=== PATIENT | female | born 1960 | race Caucasian/White ===

== ENCOUNTER → 2023-01-29 23:29 | Outpatient (CLI) | payer MEDICARE, SELFPAY ==
[2023-01-29 18:42] LABS: Basophils # 0.1 K/mm3 (0-0.2); Basophils % 0.8 % (0.1-2.0); Eosinophils # 0.1 K/mm3 (0.0-0.4); Eosinophils % 0.7 % (0.1-12.0); Hematocrit 41.8 % (37.0-47.0); Hemoglobin 13.4 g/dL (12.2-16.2); Lymphocytes # 2.3 K/mm3 (0.7-4.5); Lymphocytes % 30.6 % (10-50); Mean Corpuscular Hemoglobin 29.3 pg (27.0-31.2); Mean Corpuscular Volume 91.5 fl (81-99); Mean Platelet Volume 8.7 fl (7.4-10.4); Monocytes # 0.3 K/mm3 (0.1-1.0); Monocytes % 3.6 % (1.7-9.3); Neutrophils # 4.7 K/mm3 (1.8-7.8); Neutrophils % 64.2 % (37.0-80.0); Platelet Count 456 K/mm3 (142-424); Red Blood Count 4.57 M/mm3 (4.20-5.40); Red Cell Distribution Width 14.8 % (11.5-17.5); White Blood Count 7.4 K/mm3 (4.8-10.8)
[2023-01-29 19:05] LABS: Alanine Aminotransferase 23 U/L (12-78); Alkaline Phosphatase 107 U/L (38-126); Aspartate Amino Transferase 31 U/L (14-36); Bilirubin,Total 0.3 mg/dl (0.2-1.3); Blood Urea Nitrogen 16 mg/dl (7-17); Carbon Dioxide 29 mmol/L (22.0-30.0); Chloride 105 mmol/L (98-107); Chol/HDL Ratio 2.9 (1-3.5); Cholesterol 143 mg/dl (140-200); Estimated Glomerular Filt Rate 73 ml/min (>60); GFR (African American) 89 ML/MIN (>60); Glucose 101 mg/dl (74-100); HDL Cholesterol 50 mg/dl (40-60); Triglycerides 91 mg/dl (30-150); VLDL Cholesterol 18 mg/dL (0-40)
[2023-01-29 19:07] LABS: Albumin/Globulin Ratio 1.6 (1.1-1.8); Globulin 2.5 g/dL (1.3-3.2); Sodium 138 mmol/L (136-145); Total Protein,Serum 6.5 g/dl (6.3-8.2)
[2023-01-29 19:16] LABS: Direct LDL Cholesterol 81.34 mg/dL (100-129)
[2023-01-29 19:36] LABS: Thyroid Stimulating Hormone 1.72 uIU/mL (0.465-4.68)
== END ==
LOC: LAB.DROPOF 23:30
PROVIDERS: PCP Family Medicine; Visit Provider Family Medicine
DX: E78.5 Hyperlipidemia, unspecified (principal); Z79.899 Other long term (current) drug therapy
CPT/HCPCS: 80053; 80061; 84443; 85025

== ENCOUNTER 2023-04-20 08:28 | Outpatient (CLI) | payer MEDICARE, SELFPAY ==
--- NOTE | 2023-04-20 08:29 | MM_ITS ---
PROCEDURE INFORMATION: Exam: Bilateral Screening 3D Mammography Exam date and time: 04/20/2023 8:17 AM Age: 62 years old Clinical indication: Screening. No family history of breast cancer. TECHNIQUE: Imaging protocol: Bilateral Screening tomosynthesis and 2D mammography including computer-aided detection (CAD) when performed. COMPARISON: No relevant prior studies available.If prior mammograms are provided, I am happy to add an addendum. FINDINGS: MAMMOGRAPHY: Breast composition: The breasts are heterogeneously dense, which may obscure small masses. Mass: Oval 0.9 cm mass in the left upper outer quadrant posterior 3rd. Architectural distortion: None. Calcifications: No suspicious calcifications. Asymmetric density: Questionable lobulated 1.5 cm asymmetry in the left inner breast posterior 3rd, craniocaudad view only. Skin thickening: None. Axillary adenopathy: None. IMPRESSION: Comparison to prior mammograms will be most helpful. These are not provided within 30 days, patient will be recalled for left diagnostic mammography with spot compression at the asymmetry in the craniocaudad view and full field lateral as well as bilateral sonography for further evaluation of left breast mass and questionable left breast asymmetry. ASSESSMENT: BI-RADS Category 0: Need prior mammograms for comparison.
== END 2023-04-20 23:59 ==
LOC: RAD 08:29
PROVIDERS: PCP Family Medicine; Visit Provider Obstetrics & Gynecology
DX: Z12.31 Encounter for screening mammogram for malignant neoplasm of breast (principal)
CPT/HCPCS: 77063; 77067

== ENCOUNTER 2023-06-07 14:33 | Outpatient (CLI) | payer MEDICARE, SELFPAY ==
--- NOTE | 2023-06-07 14:37 | CT_ITS ---
FINAL REPORT TECHNIQUE: Axial images were obtained from the lung apex to the mid abdomen by computed tomography. This study was performed with techniques to keep radiation doses as low as reasonably achievable (ALARA). Individualized dose reduction techniques using automated exposure control or adjustment of mA and/or kV according to the patient's size were employed. CLINICAL HISTORY: lung cancer screening. Smoker- 1 PPD x 45 yrs. Exposed to second hand smoke. FINDINGS: CHEST CT LOW DOSE CTDI vol (mGy): 2.90 DLP (mGy-cm): 97.42 There is no axillary adenopathy. There is no hilar or mediastinal adenopathy. There is a nodule in the posterolateral left breast measuring 8 mm well seen on image 27 of series 3. The heart is normal in size. There is no pericardial or pleural effusion. Lung window images demonstrate no suspicious infiltrate or nodule. Limited images of the upper abdomen are unremarkable. IMPRESSION: Left breast nodule. Recommend physical exam and mammography. Lung RADS category 1S. Recommend 12 month follow-up low-dose chest CT. Reviewed, Interpreted and Dictated by Francisco Barker MD Transcribed by Skyla Boston Authenticated and [facility]
== END 2023-06-07 23:59 | disposition home or self-care (01) ==
LOC: RAD 14:33
PROVIDERS: PCP Family Medicine; Visit Provider Family Medicine
DX: F17.210 Nicotine dependence, cigarettes, uncomplicated (principal); Z12.2 Encounter for screening for malignant neoplasm of respiratory organs
CPT/HCPCS: 71271

== ENCOUNTER 2023-07-26 08:50 | Day surgery (SDC) | payer MEDICARE, SELFPAY ==
[2023-07-21 13:21] VITALS: BMI 19.5
[2023-07-26] VITALS (8 sets, daily range): BP systolic 98–124; BP diastolic 47–77; PULSE 56–74; RESP 14–18; TEMP 36.1–36.2; O2SAT 94–97; BMI 19.5
[2023-07-26 09:25] LABS: Chloride 106 mmol/L (98-107); Potassium 4.1 mmoL/L (3.5-5.1); Sodium 138 mmol/L (136-145)
[2023-07-26 09:28] LABS: Anion Gap 10.1 mEq/L (5-15); Blood Urea Nitrogen 24 mg/dl (7-17); Calcium 9.2 mg/dl (8.4-10.2); Carbon Dioxide 26 mmol/L (22.0-30.0); Creatinine Clearance Estimated 47 mL/min (50-200); Estimated Glomerular Filt Rate 64 ml/min (>60); GFR (African American) 77 ML/MIN (>60); Glucose 108 mg/dl (74-100)
[2023-07-26 09:30] LABS: Basophils # 0.1 K/mm3 (0-0.2); Basophils % 0.7 % (0.1-2.0); Eosinophils # 0.1 K/mm3 (0.0-0.4); Eosinophils % 1.6 % (0.1-12.0); Hematocrit 39.8 % (37.0-47.0); Hemoglobin 13.1 g/dL (12.2-16.2); Lymphocytes # 2.5 K/mm3 (0.7-4.5); Lymphocytes % 28.1 % (10-50); Mean Corpuscular Hemoglobin 29.9 pg (27.0-31.2); Mean Corpuscular Volume 90.6 fl (81-99); Mean Platelet Volume 7.6 fl (7.4-10.4); Monocytes # 0.4 K/mm3 (0.1-1.0); Monocytes % 4.8 % (1.7-9.3); Neutrophils # 5.7 K/mm3 (1.8-7.8); Neutrophils % 64.8 % (37.0-80.0); Platelet Count 406 K/mm3 (142-424); Red Blood Count 4.39 M/mm3 (4.20-5.40); White Blood Count 8.7 K/mm3 (4.8-10.8)
[2023-07-26] MEDS: CEFAZOLIN SODIUM 1 GM in 0.9 % SODIUM CHLORIDE 50 ML IV (09:30)
[2023-07-26] MEDS: ROPIVACAINE 0.5% 30ML VIAL 150 MG (09:36)
[2023-07-26] MEDS: LIDOCAINE 1% 10ML MDV 10 ML (09:36)
--- NOTE | 2023-07-26 09:52 | EXP.OP.NOTE ---
Date of procedure: 07/26/23 Pre-op Diagnosis:: Skin cancer left lower extremity Post-op Diagnosis:: Same Procedure performed:: Excision of skin cancer left lower extremity (excisional circumference 2.5 cm) without closure Surgeon:: Arturo Tobar MD MACHINE ASSEMBLER SUPERVISOR:: Niko Jade Anesthesia: LMA Estimated blood loss (mL): 3 Clinical Note:: Patient presents to the office for excision of left pretibial skin cancer. She is a 63-year-old female from [facility] referred by Dr. Orellana for skin cancer on the left pretibial region. She states that this area has been present for quite some time. Potentially years. She recently had a punch biopsy in his office on 06/06/2022. This reveals findings of invasive basal cell carcinoma. I spent a good deal of time with the patient discussing the options. This is somewhat of a challenging location to deal with surgically for primary closure given the lack of tissue. I recommend excision with grossly negative margins. Likely would plan to leave the area open for possible healing by secondary intention. That way if the pathology returns needing reexcision this can be done. If it shows lack of healing may consider limited skin graft at a later date. Operative findings:: Skin cancer, Operative note:: Consent was obtained and patient was taken to the operating room. She was given preoperative intravenous antibiotics. In the operating room she was placed in a supine position. Anesthesia was induced via LMA. Area was prepped and draped in the standard surgical fashion. Lesion was marked with a skin marker for planned negative margins circumferentially of about 4 to 5 mm. Consideration was being given for possible primary closure but this would result in about a 7 cm incision. Therefore plan was made as before for excision with margins and allowing the area to hopefully granulate. Full-thickness skin incision was made circumferentially at the site of the markings. The overlying skin was then dissected free from the underlying subcutaneous tissues using electrocautery. Prior to completely removing this it was marked with a short suture superiorly and a long suture laterally for margins. It was then excised from the underlying subcutaneous tissues. Was sent off as a specimen. Hemostasis was assured. Wound measured approximately 25 mm. Therefore plan was made for leaving the wound open and initiation of dressing changes and possible skin graft in the future if necessary. Wound was packed with a moistened saline gauze and covered with clean dry sterile dressing. Condition: stable Disposition: PACU Complications:: None immediate
--- NOTE | 2023-07-26 09:56 | P.PNANES_ITS ---
[facility] Disclaimer: The information contained in this section may have been updated after the patient was seen, as this information can be updated by other users. Medical History Family history of early CAD Family history of stroke Family history of MS (myocardial infarction) Left wrist fracture PID (pelvic inflammatory disease) Alcoholism Hypertension IBS (irritable bowel syndrome) Depression Anxiety Surgical History H/O unilateral salpingectomy S/P removal of left ovary History of surgery on right wrist Hx of section Family History Other Alzheimers disease Coronary artery disease Heart attack Stroke Social History (Updated 07/26/23 @ 09:16 by Hannah Olivera RN) Smoking Status: Current every day smoker tobacco type: cigarettes packs per day: 1 alcohol intake: former substance use type: denies use current occupational status: disabled Travel in the last 8 weeks: None [facility] Anesthesia Checklist Patient Identification Patient Identification: Arm Band and Family Structural Data Admitted From: Home Planned Operative Procedure/s: excision lesion Left Lower Leg Consent for Planned Operative Procedure(s) Verified: Yes Verified Documents: Surgical Consent and History and Physical NPO Status Verified Time NPO: 00:00 Additional verifications Patient : No Anesthesia Reactions: No Hx Blood Transfusions: No Blood Transfusion Reaction: No Cephalosporin Allergy: No Previous Colonoscopy: Yes Airway Assessment Mallampati Score:: Class II C-Spine Mobility Assessed: Yes TMJ Mobility Assessed: Yes Dentition: Good Dentition Neurological Assessment Level of Consciousness: Awake, Alert, Appropriate and Follows Commands Hx Seizures: No Numbness or tingling in extremities: No Anesthesia Plan Anesthesia Risk discussed: Yes ASA Class: II Anesthesia Type: General Preoperative Comments Pre-Operative Comments: smoker. IBS.\
--- NOTE | 2023-07-26 09:58 | P.PNANES_ITS ---
[facility] Anesthesia Record Part I Anesthesia Record I Intake, IV Amount: 400 Hydration: Adequate Estimated blood loss (mL): 1 Urine output (mL): 0 Blood Products used (#): none Blood Pressure: 121/77 SaO2: 94 Pulse Rate: 56 Airway Patency: Patent Respiratory Rate: 14 Temperature: 97.0 F Patient is:: Drowsy and Stable Stable to PACU at:: 09:50
--- NOTE | 2023-07-27 08:11 | P.PNANES_ITS ---
[facility] Anesthesia Record Part II Anesthesia Record Part II Discharge Time: 10:20 Destination: Surgical Day Care (OP Surgery) PACU nurse assessment reviewed?: Yes Patient Condition:: Good Anesthesia Complications:: None Swallowing reflex intact?: Yes Airway Patency: Patent Cyanosis?: No Blood Pressure: 124/74 SaO2: 95 Respiratory Rate: 16 Pulse Rate: 74 Temperature: 97.1 F Mental Status: Alert & Oriented Pain level:: 0 Nausea and/or vomitting:: None Intake, IV Amount: 0 Hydration: Adequate
[2023-07-27 08:12] VITALS: BP 124/74; PULSE 74; RESP 16; TEMP 36.2; O2SAT 95
== END 2023-07-26 10:51 | disposition home or self-care (01) ==
PROVIDERS: PCP Family Medicine; Visit Provider Surgery
PROC: (CPT 11603; principal; 2023-07-26 10:00)
DX: C44.719 Basal cell carcinoma of skin of left lower limb, including hip (principal)
CPT/HCPCS: 11603; 80048; 85025; 88305; 96374; J0690; J1100; J2405; J3010

== ENCOUNTER 2023-07-27 14:48 | Outpatient (CLI) | payer MEDICARE, SELFPAY ==
--- NOTE | 2023-07-27 15:00 | PC.NURSE ---
1500-instructed friend on dressing change technique to be done at home.
== END 2023-07-27 15:05 | disposition home or self-care (01) ==
LOC: INF 14:49
PROVIDERS: PCP Family Medicine; Visit Provider Surgery
DX: Z48.01 Encounter for change or removal of surgical wound dressing (principal)
CPT/HCPCS: G0463

== ENCOUNTER 2023-08-05 11:11 | Outpatient (CLI) | payer MEDICARE, SELFPAY ==
[2023-08-05] MEDS: KETOROLAC 30MG/ML VIAL 30 MG (11:20)
[2023-08-05 11:35] VITALS: BP 113/67; PULSE 51; RESP 18; O2SAT 98
== END 2023-08-05 11:35 | disposition home or self-care (01) ==
LOC: INF 11:12
PROVIDERS: PCP Family Medicine; Visit Provider Surgery
DX: C44.719 Basal cell carcinoma of skin of left lower limb, including hip (principal); Z98.890 Other specified postprocedural states
CPT/HCPCS: 96372; J1885

== ENCOUNTER 2024-03-03 09:31 | Outpatient (CLI) | payer MEDICARE, SELFPAY ==
[2024-03-03 18:32] LABS: Basophils % 0.5 % (0.1-2.0); Eosinophils # 0.1 K/mm3 (0.0-0.4); Eosinophils % 1.8 % (0.1-12.0); Hemoglobin 12.9 g/dL (12.2-16.2); Lymphocytes # 2.1 K/mm3 (0.7-4.5); Lymphocytes % 34.2 % (10-50); Mean Corpuscular HGB Conc 31.5 g/dL (31.8-35.4); Mean Corpuscular Hemoglobin 28.6 pg (27.0-31.2); Mean Corpuscular Volume 90.9 fl (81-99); Mean Platelet Volume 8.8 fl (7.4-10.4); Monocytes # 0.4 K/mm3 (0.1-1.0); Monocytes % 5.6 % (1.7-9.3); Neutrophils # 3.6 K/mm3 (1.8-7.8); Neutrophils % 57.7 % (37.0-80.0); Platelet Count 382 K/mm3 (142-424); Red Blood Count 4.51 M/mm3 (4.20-5.40); Red Cell Distribution Width 13.6 % (11.5-17.5); White Blood Count 6.3 K/mm3 (4.8-10.8)
[2024-03-03 19:15] LABS: Alanine Aminotransferase 32 U/L (12-78); Alkaline Phosphatase 100 U/L (38-126); Anion Gap 10.4 mEq/L (5-15); Aspartate Amino Transferase 34 U/L (14-36); Blood Urea Nitrogen 19 mg/dl (7-17); Calcium 9.9 mg/dl (8.4-10.2); Carbon Dioxide 29 mmol/L (22.0-30.0); Chloride 102 mmol/L (98-107); Chol/HDL Ratio 3.5 (1-3.5); Cholesterol 111 mg/dl (140-200); Estimated Glomerular Filt Rate 73 ml/min (>60); GFR (African American) 88 ML/MIN (>60); Glucose 94 mg/dl (74-100); HDL Cholesterol 32 mg/dl (40-60); Potassium 4.4 mmoL/L (3.5-5.1); Sodium 137 mmol/L (136-145); Triglycerides 104 mg/dl (30-150); VLDL Cholesterol 21 mg/dL (0-40)
[2024-03-03 19:20] LABS: Bilirubin,Total < 0.1 mg/dl (0.2-1.3)
[2024-03-03 19:26] LABS: Direct LDL Cholesterol 62.57 mg/dL (100-129)
[2024-03-03 19:45] LABS: Thyroid Stimulating Hormone 1.37 uIU/mL (0.465-4.68)
[2024-03-03 20:07] LABS: HIV Combo NEGATIVE (Negative)
[2024-03-03 20:12] LABS: Hepatitis C Ab Qual. W/ RFX NEGATIVE (Negative)
== END 2024-03-03 23:59 | disposition home or self-care (01) ==
LOC: LAB.DROPOF 03-06 09:33
PROVIDERS: PCP Family Medicine; Visit Provider Family Medicine
DX: E78.5 Hyperlipidemia, unspecified (principal)
CPT/HCPCS: 80053; 80061; 84443; 85025; 86803; 87389

== ENCOUNTER 2024-03-21 08:12 | Outpatient (CLI) | payer MEDICARE, SELFPAY ==
--- NOTE | 2024-03-21 08:13 | CT_ITS ---
FINAL REPORT TECHNIQUE: Thin section axial images were obtained from the lung apices to the upper abdomen by computed tomography. Reformatted images were obtained and reviewed. This study was performed with techniques to keep radiation doses al low as reasonably achievable (ALARA). Individualized dose reduction techniques using automated exposure control or adjustment of mA and/or kV according to the patient's size were employed. CLINICAL HISTORY: lung cancer screening current smoker , 1 ppd x 30 years COMPARISON: 06/07/2023 FINDINGS: CHEST CT LOW DOSE 63-year-old female, current smoker, 04-tymf-sbut history. CTDI vol (mGy): 2.9 DLP (mGy-cm): 96.38 There is no axillary adenopathy. There is no mediastinal or hilar mass or adenopathy. The heart is normal in size. There is no pericardial or pleural effusion. Lung window images demonstrate a small 3 mm nodule in the left upper lobe best seen on image #32 of series 4, stable when compared to the prior exam. The previously seen nodule in the left breast is less conspicuous on today's exam, best seen on image #135 of series 2 and measuring 7 mm in size. Limited images of the upper abdomen are unremarkable. IMPRESSION: Lung-RADS category 2. Recommend 12 month follow up low dose chest CT. Reviewed, Interpreted and Dictated by Francisco Barker MD Transcribed by Kelly He Authenticated and [facility]
== END 2024-03-21 23:59 | disposition home or self-care (01) ==
LOC: RAD 08:13
PROVIDERS: PCP Family Medicine; Visit Provider Family Medicine
DX: F17.210 Nicotine dependence, cigarettes, uncomplicated (principal); Z12.2 Encounter for screening for malignant neoplasm of respiratory organs
CPT/HCPCS: 71271

== ENCOUNTER 2024-06-12 10:31 | Day surgery (SDC) | payer MEDICARE, SELFPAY ==
[2024-06-09 09:00] VITALS: BMI 16.8
[2024-06-12 11:55] VITALS: BP 99/61; PULSE 60; RESP 16; TEMP 36.4; O2SAT 98
[2024-06-12] MEDS: LACTATED RINGERS 1000ML 1,000 ML 50 ML IV (12:04)
--- NOTE | 2024-06-12 12:19 | P.PNANES_ITS ---
[facility] Disclaimer: The information contained in this section may have been updated after the patient was seen, as this information can be updated by other users. Medical History Family history of early CAD Family history of stroke Family history of KS (myocardial infarction) Left wrist fracture PID (pelvic inflammatory disease) Alcoholism Hypertension IBS (irritable bowel syndrome) Depression Anxiety Surgical History H/O unilateral salpingectomy S/P removal of left ovary History of surgery on right wrist Hx of section Family History Other Alzheimers disease Coronary artery disease Heart attack Stroke Social History (Updated 06/12/24 @ 12:03 by Stephani Blackwell RN) Smoking Status: Current every day smoker tobacco type: cigarettes packs per day: 1 alcohol intake: never substance use type: denies use current occupational status: disabled Travel in the last 8 weeks: None caffeine: Yes Have you lived/traveled outside [place] in past 30 days?: No Contact w/someone who lives/traveled outside US past 30 days?: No Exposure to someone with infectious disease in past 14 days?: No Do you have a fever (greater than 100.4 F or 38 C)?: No Have you tested positive for COVID-19: No Exposed to someone with COVID-19 in past 14 days?: No Do you have a sore throat?: No Do you have a cough?: No Do you have any weakness?: No Are you experiencing any nausea/vomitting?: No Do you have any diarrhea?: No Are you experiencing any unusual bleeding?: No Do you have any muscle aches/pain?: No Do you have any abdominal pain?: No Are you experiencing loss of taste or smell?: No [facility] Anesthesia Checklist Patient Identification Patient Identification: Arm Band and Verbal (Name & ) Structural Data Admitted From: Home Planned Operative Procedure/s: EGD/colonoscopy Consent for Planned Operative Procedure(s) Verified: Yes Verified Documents: Surgical Consent NPO Status Verified Time NPO: 00:00 Chart Verification Results Verified: None Additional verifications Anesthesia Reactions: No Hx Blood Transfusions: No Blood Transfusion Reaction: No Airway Assessment Mallampati Score:: Class II C-Spine Mobility Assessed: Yes Dentition: Edentulous Neurological Assessment Level of Consciousness: Awake, Alert and Appropriate Hx Seizures: No Numbness or tingling in extremities: No Anesthesia Plan Anesthesia Risk discussed: Yes Anesthesia Plan: Verified ASA Class: II Anesthesia Type: MAC
--- NOTE | 2024-06-12 13:13 | EXP.HP ---
History of Present Illness *Admission Date: 06/12/24 *History of present illness: Mrs. Boss is a 63-year-old female with longstanding IBS with diarrhea. The patient was having bowel control difficulties and had InterStim placed several years ago but this is not functioning. The patient does describe chronic intermittent diarrhea with no regular bowel movements or constipation. She can have no bowel movements or up to 4 bowel movements daily with urgency and frequency. She does have some incomplete defecation. The patient's chief complaint however is her abnormal weight loss with significant early satiety, nausea and postprandial vomiting that occurs 30 minutes after meals. She is not eating much. She has lost nearly 20 pounds in the last few months (since November 2023). In November 2023 she had dental extraction and has not had dentures made just yet. She is having a very difficult time maintaining her weight. She went from 115 pounds down to 95 pounds. She is lost nearly 60 pounds in the last 6 years. She has had no recent abdominal imaging. She does report moderate bloating with little gassiness. She has marked early satiety and pain in the upper and lower abdomen. She has not had cholecystectomy. She does have a history of anxiety and depression and is on Trintellix. She has had no recent colonoscopy and her last colonoscopy was 5 years ago (? In [place]). The patient also reports more frequent bouts of significant lightheadedness and has had 3 or 4 bouts of syncope recently. She has not seen her PCP or gone to the emergency department. [facility] Disclaimer: The information contained in this section may have been updated after the patient was seen, as this information can be updated by other users. Medical History Family history of early CAD Family history of stroke Family history of MD (myocardial infarction) Left wrist fracture PID (pelvic inflammatory disease) Alcoholism Hypertension IBS (irritable bowel syndrome) Depression Anxiety Surgical History H/O unilateral salpingectomy S/P removal of left ovary History of surgery on right wrist Hx of section Family History Other Alzheimers disease Coronary artery disease Heart attack Stroke Social History (Updated 06/12/24 @ 12:03 by Stephani Blackwell RN) Smoking Status: Current every day smoker tobacco type: cigarettes packs per day: 1 alcohol intake: never substance use type: denies use current occupational status: disabled Travel in the last 8 weeks: None caffeine: Yes Have you lived/traveled outside US in past 30 days?: No Contact w/someone who lives/traveled outside US past 30 days?: No Exposure to someone with infectious disease in past 14 days?: No Do you have a fever (greater than 100.4 F or 38 C)?: No Have you tested positive for COVID-19: No Exposed to someone with COVID-19 in past 14 days?: No Do you have a sore throat?: No Do you have a cough?: No Do you have any weakness?: No Are you experiencing any nausea/vomitting?: No Do you have any diarrhea?: No Are you experiencing any unusual bleeding?: No Do you have any muscle aches/pain?: No Do you have any abdominal pain?: No Are you experiencing loss of taste or smell?: No Review of Systems Review of Systems Review of systems (narrative): Negative *Cardiovascular Comments: Negative *Gastrointestinal Comments: Negative *Genitourinary Comments: Negative *Musculoskeletal Comments: Negative *Neurologic Comments: Negative Meds Home Medications and Allergies Home Medications ?Medication ?Instructions ?Recorded ?Confirmed ?Type eszopiclone 3 mg tablet (Lunesta) 3 mg PO DAILY 03/24/23 06/12/24 History vortioxetine 20 mg tablet 20 mg PO DAILY 03/24/23 06/12/24 History (Trintellix) atorvastatin 80 mg tablet 80 mg PO DAILY #90 tabs 05/14/23 06/12/24 Rx hydroxyzine HCl 50 mg tablet 100 mg (2 x 50 mg) PO HS #180 tabs 05/14/23 06/12/24 Rx gabapentin 100 mg capsule 100 mg PO DAILY #30 caps 03/03/24 06/12/24 Rx ropinirole 3 mg tablet 3 mg PO DAILY #90 tabs 04/20/24 06/12/24 Rx lorazepam 1 mg tablet 4 mg PO DAILY PRN Anxiety 05/30/24 06/12/24 History sodium,potassium,mag sulfates 17.5 See Rx Instructions PO .COMPLEX 05/30/24 06/12/24 Rx gram-3.13 gram-1.6 gram oral soln #354 mL (Suprep Bowel Prep Kit) trazodone 150 mg tablet 150 mg PO HS 06/09/24 06/12/24 History New Prescriptions to Start Prescriptions: Allergies Allergy/AdvReac Type Severity Reaction Status Date / Time No Known Allergies Allergy Verified 06/12/24 11:52 Exam Data for Last 24 hours Vital signs and Labs for Last 24 Hours: Temp Pulse Resp BP Pulse Ox O2 Del Method 97.6 F 60 16 99/61 L 98 Room Air 06/12/24 11:55 06/12/24 11:55 06/12/24 11:55 06/12/24 11:55 06/12/24 11:55 06/12/24 11:55 I & O for Last 24 hours: Intake & Output 06/09/24 06/10/24 06/11/24 06/12/24 23:59 23:59 23:59 23:59 Weight 95 lb *Routine HEENT Exam Head: Present normocephalic Eye: Present EOMI and PERRL ENT: Present mucous membranes moist *Routine Neck Exam Neck: Present supple *Routine Respiratory Exam Respiratory: Present CTA bilaterally *Routine Cardiovascular Exam Cardiovascular: Present RRR *Routine Abdominal Exam Abdominal: Present soft and normoactive bowel sounds; Absent tenderness *Routine Rectal Exam Rectal:: deferred *Routine Genitalia Exam Genitalia:: deferred *Routine Extremities Exam Extremities: Absent cyanosis, clubbing or edema *Routine Skin Exam Skin: Present warm; Absent rash *Routine Neurological Exam Neurological: Present alert and oriented X3 Assessment and Plan *Assessment and plan (1) Nausea and vomiting: Status: Acute Category: Medical Code(s): R11.2 - Nausea with vomiting, unspecified (2) Chronic diarrhea: Status: Acute Category: Medical Code(s): K52.9 - Noninfective gastroenteritis and colitis, unspecified (3) Early satiety: Status: Acute Category: Medical Code(s): R68.81 - Early satiety (4) Abnormal weight loss: Status: Acute Category: Medical Code(s): R63.4 - Abnormal weight loss (5) Generalized abdominal pain: Status: Acute Category: Medical Code(s): R10.84 - Generalized abdominal pain (6) Abdominal cramps: Status: Acute Category: Medical Code(s): R10.9 - Unspecified abdominal pain Plan A/P: 1. Nausea/vomiting with early satiety and weight loss. The patient does have chronic diarrhea. This is the preprocedural diagnosis. The patient will be anesthetized/sedated using MAC sedation. The patient has been seen and examined. Cardiac and lung assessment prior to the examination is stable. Proceed with planned diagnostic EGD and colonoscopy.
[2024-06-12 13:17] VITALS: O2SAT 98
--- NOTE | 2024-06-12 13:20 | HMH.PROCNOTE ---
[facility] Procedure Note Date: 06/12/24 Time: 13:31 Procedure Note:: Upper Endoscopy Procedure Report: Esophagogastroduodenoscopy with cold biopsies and TTS balloon dilation Endoscopost: Damon Herr II, MD Referring Physician: Tino Orellana MD Date of Procedure: June 12, 2024 Equipment: Olympus GIF 190 standard upper endoscope Sedation: MAC sedation Indications: Mrs. Boss is a 63-year-old female who is here for diagnostic EGD and colonoscopy. She has had longstanding IBS with diarrhea. The patient was having bowel control difficulties and had InterStim placed several years ago but this is not functioning. The patient does describe chronic intermittent diarrhea with no regular bowel movements or constipation. She can have no bowel movements or up to 4 bowel movements daily with urgency and frequency. She does have some incomplete defecation. The patient's chief complaint however is her abnormal weight loss with significant early satiety, nausea and postprandial vomiting that occurs 30 minutes after meals. She is not eating much. She has lost nearly 20 pounds in the last few months (since November 2023). In November 2023 she had dental extraction and has not had dentures made just yet. She is having a very difficult time maintaining her weight. She went from 115 pounds down to 95 pounds. She is lost nearly 60 pounds in the last 6 years. She has had no recent abdominal imaging. She does report moderate bloating with little gassiness. She has marked early satiety and pain in the upper and lower abdomen. She has not had cholecystectomy. She does have a history of anxiety and depression and is on Trintellix. She has had no recent colonoscopy and her last colonoscopy was 5 years ago (? In [place]). The patient also reports more frequent bouts of significant lightheadedness and has had 3 or 4 bouts of syncope recently. She has not seen her PCP or gone to the emergency department. Procedure: Prior to the procedure, a history and physical exam was performed, and patient's medications and allergies were reviewed. The risks, benefits and alternatives of the sedation and procedure were discussed with the patient. All questions were answered and informed consent was obtained. The patient was brought to the procedure room. Patient identification and proposed procedure were verified by the physician and the nurse. The patient was placed in a left lateral decubitus position and the scope was passed under direct vision. Throughout the procedure, the patient's blood pressure, pulse, and oxygen saturations were monitored continuously. The upper GI endoscopy was accomplished without difficulty. The patient tolerated the procedure well. Findings: The scope was passed directly into the upper esophagus and advanced to the third portion of the duodenum. The post bulbar duodenum and duodenal bulb were normal with normal mucosa and conniventes. Cold biopsies were taken from the first portion of duodenum to rule out celiac disease. The scope was withdrawn through a normal duodenal bulb and pylorus into the stomach. There was linear reactive gastropathy of the antrum and body of the stomach with bile reflux. Biopsies were taken from the antrum. The proximal body and fundus of the stomach were normal. Upon retroflexion there was a very small sliding hiatal hernia (1 to 2 cm). The scope was then withdrawn into the esophagus. There was no evidence of reflux esophagitis or Szymanski's. There was a small insignificant distal ring. There were tertiary contractions and evidence of moderate esophageal dysmotility. The entire esophagus was dilated to 60 Urdu/20 mm with a TTS hydrostatic balloon with no resistance. The remainder of the esophageal mucosa was normal. Impression: 1. Nonerosive GERD with moderate esophageal dysmotility and very small sliding 1 to 2 cm hiatal hernia 2. Bile reflux with mild to moderate linear reactive gastropathy Plan: I will follow-up the biopsies and proceed with diagnostic colonoscopy. I will discuss the findings with the patient and family.
--- NOTE | 2024-06-12 13:33 | P.PCN_ITS ---
[facility] Procedure Note Date: 06/12/24 Time: 13:48 Procedure Note:: Colonoscopy Procedure Report: Colonoscopy with cold biopsies Endoscopist: Damon Herr II, MD Referring physician: Tino Orellana MD Date of Procedure: June 12, 2024 Equipment: Olympus 190 variable stiffness pediatric colonoscope Sedation: MAC sedation Indication: Mrs. Boss is a 63-year-old female who is here for diagnostic EGD and colonoscopy. She has had longstanding IBS with diarrhea. The patient was having bowel control difficulties and had InterStim placed several years ago but this is not functioning. The patient does describe chronic intermittent diarrhea with no regular bowel movements or constipation. She can have no bowel movements or up to 4 bowel movements daily with urgency and frequency. She does have some incomplete defecation. The patient's chief complaint however is her abnormal weight loss with significant early satiety, nausea and postprandial vomiting that occurs 30 minutes after meals. She is not eating much. She has lost nearly 20 pounds in the last few months (since November 2023). In November 2023 she had dental extraction and has not had dentures made just yet. She is having a very difficult time maintaining her weight. She went from 115 pounds down to 95 pounds. She is lost nearly 60 pounds in the last 6 years. She has had no recent abdominal imaging. She does report moderate bloating with little gassiness. She has marked early satiety and pain in the upper and lower abdomen. She has not had cholecystectomy. She does have a history of anxiety and depression and is on Trintellix. She has had no recent colonoscopy and her last colonoscopy was 5 years ago (? In [place]). The patient also reports more frequent bouts of significant lightheadedness and has had 3 or 4 bouts of syncope recently. She has not seen her PCP or gone to the emergency department. Procedure: Prior to the procedure, a history and physical exam was performed, and patient's medications and allergies were reviewed. The risks, benefits and alternatives of the sedation and procedure were discussed with the patient. All questions were answered and informed consent was obtained. The patient was brought to the procedure room. Patient identification and proposed procedure were verified by the physician and the nurse. The patient was placed in a left lateral decubitus position and the scope was passed under direct vision. Throughout the procedure, the patient's blood pressure, pulse, and oxygen saturations were monitored continuously. The colonoscopy was accomplished without difficulty. The patient tolerated the procedure well. Findings: On digital rectal examination there was normal rectal tone. There were no external hemorrhoids. The colonoscope was introduced through the anal canal to the rectum and advanced to the cecum. The ileocecal valve and appendiceal orifice were identified. The scope was advanced a short distance into the ileum which appeared grossly normal. The scope was then withdrawn into the colon. The cecum, ascending, transverse, descending, sigmoid and rectum were grossly normal. There was increased colonic luminal diameter. There were no mucosal abnormalities identified. Cold biopsies were taken randomly to rule out microsc opic colitis. Upon retroflexion within the rectum there were grade 1 internal hemorrhoids. The preparation was good throughout with [place] Preparation Score of 7?8 out of 9. The cecal time was 12 minutes. Impression: 1. Normal colonoscopy with intubation of the terminal ileum 2. Increased colonic luminal diameter 3. Small grade 1 internal hemorrhoids Plan: I will follow-up the biopsies to rule out microscopic colitis. If the biopsies are normal, I would recommend bulking FiberCon tablets daily. I do feel that she has incomplete defecation/outlet dysfunction obstipation with bowel control difficulties. Regular bowel function and rectal evacuation is a delicate balance between the nerves and muscles of the rectum. The nerves that arise from the sacral spine are very closely tied to bowel evacuation. This sacral nervous system allows you to recognize when your rectum is full and allows you to correctly contract muscles and hold on to stool appropriately before or until you get to the bathroom. It also allows your bowel/rectum to evacuate fully. When this balance is upset there is incorrect communication between the brain and the nervous system. This can result in the inability to control the passage of liquid and/or solid stool, involuntary leakage and sometimes loss of bowel control.
[2024-06-12 13:53] VITALS: BP 80/47; PULSE 64; RESP 17; TEMP 36.3; O2SAT 92
[2024-06-12 14:03] VITALS: BP 99/64; PULSE 60; RESP 17; O2SAT 95
[2024-06-12 14:13] VITALS: BP 98/62; PULSE 61; RESP 18; O2SAT 95
[2024-06-12 14:23] VITALS: BP 91/60; PULSE 63; RESP 17; O2SAT 94
== END 2024-06-12 14:57 | disposition home or self-care (01) ==
PROVIDERS: PCP Family Medicine; Visit Provider Internal Medicine Gastroenterology
PROC: 0DJ08ZZ Inspection of Upper Intestinal Tract, Via Natural or Artificial Opening Endoscopic (ICD-10-PCS; CPT 45378; principal; 2024-06-12 12:00)
DX: R11.2 Nausea with vomiting, unspecified (principal); R68.81 Early satiety; R63.4 Abnormal weight loss; R10.84 Generalized abdominal pain; R14.0 Abdominal distension (gaseous); K58.0 Irritable bowel syndrome with diarrhea; R15.2 Fecal urgency; K21.9 Gastro-esophageal reflux disease without esophagitis; K44.9 Diaphragmatic hernia without obstruction or gangrene; K22.4 Dyskinesia of esophagus; K31.9 Disease of stomach and duodenum, unspecified; K59.39 Other megacolon; K64.0 First degree hemorrhoids
CPT/HCPCS: 43239; 43249; 45380; C1726; J7120

== ENCOUNTER 2024-06-16 09:28 | Outpatient (CLI) | payer MEDICARE, SELFPAY ==
--- NOTE | 2024-06-16 09:30 | CT_ITS ---
FINAL REPORT CLINICAL HISTORY: Abdominal pain and weight loss FINDINGS: The lung bases are clear. There is a relative lack of intra-abdominal fat. The liver parenchyma is homogeneous. The gallbladder is present. The spleen is unremarkable. The adrenals are normal. The pancreas is unremarkable. The kidneys enhance appropriately. Fluid and stool are seen throughout the colon. The uterus is present and lies midline. The cecum is low-lying. The urinary bladder is incompletely distended. A stimulator device overlies the right gluteal region. Precontrast images demonstrate a nonobstructing stone in the left kidney measuring 5 mm. IMPRESSION: Large amount of fluid and stool in the colon. Nonobstructing left renal stone. Stimulator device over the right gluteal region. Reviewed, Interpreted and Dictated by Francisco Barker MD Transcribed by Maricruz Zepeda Authenticated and [facility]
[2024-06-16 09:54] LABS: Blood Urea Nitrogen 15 mg/dl (7-17); Estimated Glomerular Filt Rate 73 ml/min (>60); GFR (African American) 88 ML/MIN (>60)
[2024-06-16] MEDS: IOPAMIDOL-370 (76%);100ML BOTTLE 75 ML IV (10:13)
[2024-06-16] MEDS: SODIUM CHLORIDE 0.9% 10ML SYR (RAD ONLY) 10 ML IV (10:14)
== END 2024-06-16 23:59 | disposition home or self-care (01) ==
LOC: RAD 09:28
PROVIDERS: PCP Family Medicine; Visit Provider Internal Medicine Gastroenterology
DX: R10.84 Generalized abdominal pain (principal); R63.4 Abnormal weight loss; R68.81 Early satiety; Z68.1 Body mass index [BMI] 19.9 or less, adult
CPT/HCPCS: 36415; 74178; 82565; 84520; Q9967

== ENCOUNTER 2024-07-19 09:40 | Outpatient (CLI) | payer MEDICARE, SELFPAY ==
[2024-07-19 18:48] LABS: Basophils % 0.5 % (0.1-2.0); Eosinophils # 0.1 Kmm3 (0.0-0.4); Eosinophils % 1.4 % (0.1-12.0); Hematocrit 39.8 % (37.0-47.0); Hemoglobin 12.2 g/dL (12.2-16.2); Immature Granulocytes # 0.02 10^3uL; Immature Granulocytes % 0.3 %; Lymphocytes # 2.4 K/mm3 (0.7-4.5); Lymphocytes % 29.9 % (10-50); Mean Corpuscular HGB Conc 30.7 g/dL (31.8-35.4); Mean Corpuscular Hemoglobin 28.7 pg (27.0-31.2); Mean Corpuscular Volume 93.6 fl (81-99); Mean Platelet Volume 8.7 fl (7.4-10.4); Monocytes # 0.4 K/mm3 (0.1-1.0); Neutrophils % 62.9 % (37.0-80.0); Nucleated Red Blood Cells # 0 10^3/uL; Nucleated Red Blood Cells % 0 %; Platelet Count 371 K/mm3 (142-424); Red Blood Count 4.25 M/mm3 (4.20-5.40); Red Cell Distribution Width 13.6 % (11.5-17.5); Red Cell Distribution Width-SD 46.1 fL; White Blood Count 7.9 K/mm3 (4.8-10.8)
[2024-07-19 19:52] LABS: Alanine Aminotransferase 20 U/L (12-78); Albumin Level 3.8 g/dl (3.5-5.0); Albumin/Globulin Ratio 1.7 (1.1-1.8); Alkaline Phosphatase 90 U/L (38-126); Anion Gap 11.6 mEq/L (5-15); Aspartate Amino Transferase 26 U/L (14-36); Bilirubin,Total 0.3 mg/dl (0.2-1.3); Blood Urea Nitrogen 13 mg/dl (7-17); Calcium 9.2 mg/dl (8.4-10.2); Carbon Dioxide 30 mmol/L (22.0-30.0); Chloride 104 mmol/L (98-107); Chol/HDL Ratio 3.1 (1-3.5); Cholesterol 107 mg/dl (140-200); Estimated Glomerular Filt Rate 73 ml/min (>60); GFR (African American) 88 ML/MIN (>60); Globulin 2.2 g/dL (1.3-3.2); Glucose 64 mg/dl (74-100); HDL Cholesterol 34 mg/dl (40-60); Potassium 4.6 mmoL/L (3.5-5.1); Sodium 141 mmol/L (136-145); Triglycerides 97 mg/dl (30-150); VLDL Cholesterol 19 mg/dL (0-40)
[2024-07-19 20:12] LABS: T4 (Thyroxine) 8.8 ug/dl (5.53-11.0)
[2024-07-19 20:25] LABS: Thyroid Stimulating Hormone 1.12 uIU/mL (0.465-4.68)
[2024-07-21 05:13] LABS: Hepatitis B Surface Antigen Negative (Negative)
== END 2024-07-19 23:59 | disposition home or self-care (01) ==
LOC: LAB.DROPOF 07-20 12:55
PROVIDERS: PCP Family Medicine; Visit Provider Family Medicine
DX: K63.89 Other specified diseases of intestine (principal); R55 Syncope and collapse; R14.0 Abdominal distension (gaseous); Z11.59 Encounter for screening for other viral diseases; R63.4 Abnormal weight loss
CPT/HCPCS: 80053; 80061; 84436; 84443; 85025; 87340

== ENCOUNTER 2024-07-20 11:01 | Emergency (ER) | payer MEDICARE, SELFPAY ==
[2024-07-20] VITALS (11 sets, daily range): BP systolic 90–125; BP diastolic 56–70; PULSE 44–71; RESP 17–21; TEMP 36.7; O2SAT 94–99; BMI 15.5
--- NOTE | 2024-07-20 11:14 | ECG_ITS ---
APPROVED REPORT Exam: Resting ECG HR:65 bpm ECG Measurements Heart Rate 65 AXES RI 168 P 81 QRSd 83 QRS 62 QT 409 T 69 QTc 420 Conclusion SINUS RHYTHM NORMAL ECG Electronically signed by : LITZY DENNY, 07/20/2024 15:37:09
[2024-07-20 11:20] LABS: Microscopic, Urine URINE MICROSCOPIC (MICROSCOPIC)
[2024-07-20 11:22] LABS: Appearance,Urine SL CLOUDY (Clear); Bilirubin,Urine Negative (Negative); Blood, Urine Negative (Negative); Color,Urine YELLOW (Yellow); Glucose,Urine (UA) Negative (Negative); Ketones,Urine TRACE (Negative); Leukocyte Esterase,Urine Negative (Negative); Nitrate,Urine Negative (Negative); Protein,Urine Negative (Negative); Urobilinogen,Urine 0.2 EU/dl (0.2)
--- NOTE | 2024-07-20 11:37 | CT_ITS ---
FINAL REPORT TECHNIQUE: Axial imaging of the chest is obtained after the administration of contrast. 3-D MIP reformatted images were also obtained and reviewed per PE protocol. This study was performed with techniques to keep radiation doses as low as reasonably achievable (ALARA). Individualized dose reduction techniques using automated exposure control or adjustment of mA and/or kV according to the patient's size were employed. This study was performed with techniques to keep radiation doses as low as reasonably achievable (ALARA). Individualized dose reduction techniques using automated exposure control or adjustment of mA and/or kV according to the patient's size were employed. CLINICAL HISTORY: recurrent syncope, abd pain, unintent. wt loss COMPARISON: None FINDINGS: The pulmonary arteries are well filled. There is no evidence of pulmonary embolus. There is no aortic dissection. Heart size is normal. There is no mediastinal, hilar, or axillary lymphadenopathy. The lungs are clear. There is no pleural or pericardial effusion. IMPRESSION: No evidence of pulmonary embolism or aortic dissection. Reviewed, Interpreted and Dictated by La Au MD Transcribed by Kelly He Authenticated and [facility]
--- NOTE | 2024-07-20 11:37 | CT_ITS ---
FINAL REPORT TECHNIQUE: Thin section axial images are obtained through the abdomen and pelvis after intravenous contrast. Reconstruction images were obtained from the axial data. Exam was performed using dose reduction techniques. This study was performed with techniques to keep radiation doses as low as reasonably achievable (ALARA). Individualized dose reduction techniques using automated exposure control or adjustment of mA and/or kV according to the patient's size were employed. CLINICAL HISTORY: recurrent syncope, abd pain, unintent. wt loss COMPARISON: 06/16/2024 FINDINGS: LIVER: Homogeneous. No focal lesion. GALLBLADDER/BILIARY SYSTEM: Gallbladder is present. No gallstones. No biliary dilatation. SPLEEN: Unremarkable. PANCREAS: Unremarkable. Incidental note is made of pancreas divisum. ADRENALS: Unremarkable. KIDNEYS/URETERS/BLADDER: No hydronephrosis, renal mass, or renal stone. Unremarkable urinary bladder. GI TRACT: There are fluid-filled loops of mid and distal small bowel noted. The proximal colon is distended with fluid, and there are hypoechoic peripheral margins of the small bowel and proximal colon, favor enterocolitis. A large amount of stool is present in the sigmoid colon. Normal appendix. PELVIC ORGANS: The uterus has been surgically resected. LYMPH NODES/RETROPERITONEUM/MESENTERY: No lymphadenopathy. No abdominal aortic aneurysm. ABDOMINAL WALL: The abdominal wall is intact. FREE FLUID: No ascites. BONES: No acute osseous abnormality. IMPRESSION: Fluid-filled mid and distal small bowel loops as well as proximal colon, with peripheral enhancement of the mucosa, favor enterocolitis. There is a large amount of stool present in the sigmoid colon consistent with constipation. Reviewed, Interpreted and Dictated by La Au MD Transcribed by Kelly He Authenticated and [facility]
--- NOTE | 2024-07-20 11:40 | HMH.EDGENADL ---
Discharge Plan Disposition Patient Disposition: Home, Self-Care Condition: Good Prescriptions Prescriptions: New lactulose 20 gram packet 20 g PO DAILY PRN (Reason: constipation) Qty: 15 0RF mineral oil [Fleet Mineral Oil] Enema 118 ml SC DAILY PRN (Reason: constipation) Qty: 133 0RF Rx Instructions: discard any unused portion No Action lorazepam 1 mg tablet 4 mg PO DAILY PRN (Reason: Anxiety) Patient Comments: TAKE 1 TABLET BY MOUTH THREE TIMES A DAY NEEDED DO NOT FILL UNTIL 01/20/2023 Trintellix 20 mg tablet 20 mg PO DAILY Patient Comments: TAKE 1 TABLET BY MOUTH EVERY DAY eszopiclone [Lunesta] 3 mg tablet 3 mg PO DAILY Patient Comments: TAKE 1 TABLET BY MOUTH EVERYDAY AT BEDTIME sodium,potassium,mag sulfates [Suprep Bowel Prep Kit] 17.5-3.13-1.6 gram recon soln See Rx Instructions PO .COMPLEX Qty: 354 0RF Rx Instructions: DILUTE; drink full amount early evening before AND next morning at least 4-5 hr before procedure; follow w 960 mL water PO hydroxyzine HCl 50 mg tablet 100 mg PO HS Qty: 180 3RF gabapentin 100 mg capsule 100 mg PO DAILY Qty: 30 5RF dicyclomine 20 mg tablet PO Patient Comments: TAKE 1 TABLET BY MOUTH THREE TIMES A DAY ropinirole 3 mg tablet 3 mg PO DAILY Qty: 90 3RF Xifaxan 550 mg tablet 550 mg PO TID 14 Days Qty: 42 2RF Rx Instructions: Please take 1 tablet p.o. 3 times daily x 14 days atorvastatin 80 mg tablet 80 mg PO DAILY Qty: 90 3RF trazodone 150 mg tablet 150 mg PO HS Creon 36,000-114,000- 180,000 unit capsule,delayed release(DR/EC) 1 cap PO .With meals Qty: 90 12RF Rx Instructions: administer with meals and/or snacks Referrals Follow up/Referrals: Damon Herr II, MD [Staff Physician, Gastroenterology] - See instructions You Orellana MD [Primary Care Provider, Family Practice] - See instructions Activity Restrictions/Add. Instructions Additional Instructions/Restrictions: You were evaluated in the emergency department today. Your CT scan is concerning for severe constipation, for which I am recommending lactulose and an enema to help with a one-time cleanout. After this, I recommend close follow-up with GI and continue taking your FiberCon prescribed by them. Please also follow-up very closely with your primary care provider for further assessment and management. Your blood pressure improved quite nicely with fluids today, so please push to make sure that you are eating and drinking plenty, especially oral fluids. I recommend supplement shakes if you are not able to eat very much, such as boost. Return to the emergency department for new or worsening symptoms. Clinical Impressions Clinical Impression: Dehydration, Malnutrition, Constipation Stand Alone Forms Stand Alone Forms: Work/School Release Instructions Patient Instructions: DI for Dehydration -- Adult, DI for Constipation Print Language Print Language: Tunisian Discharge ED Provider: Lydia [facility] HPI General Chief complaint: Dizziness Stated complaint: passing out,, lost weight, no appetite, low b/p Time Seen by Provider: 07/20/24 11:18 Mode of Arrival: Ambulatory Source of Information: Patient Description of Symptoms (Recalled from ER Triage Doc. by RN): pt is here due to low bp, weight loss over the last 6 months an dizziness History of Present Illness HPI narrative: This patient is a 64-year-old female with a history of tobacco use, IBS with diarrhea, GERD, hiatal hernia, hyperlipidemia, and anxiety presenting to the emergency department for evaluation concern for early satiety, unintentional weight loss, low blood pressure, and syncopal episodes. According to the patient, this all started back in March whenever she had teeth removed in anticipation of getting implants, but she has not yet gotten the implants. She notes that she has abdominal pain that is mild generalized when she eats and drinks, keeping her from being able to eat very much. She also notes that she has no taste and nothing tastes good enough to eat. For this, she has had CT scan of her abdomen and also was referred to GI at which point she had EGD and colonoscopy. EGD and colonoscopy were reassuring, but biopsies demonstrated concerns for nonspecific colitis and gastritis with no overt overgrowth of bacteria. GI had recommended FiberCon tablets. She followed up with her primary care provider yesterday and was told that she should come to the ED for further evaluation of her low blood pressure, syncopal episodes, poor oral intake, unintentional weight loss. She denies any headache, vision changes, numbness, tingling, chest pain, shortness of breath, cough, vomiting, urinary symptoms. She does note persistent diarrhea in the setting of IBS. She notes that as far as a syncopal episodes go, they used to happen on a weekly basis, but that has tapered off and she is not having them as frequent now. Related Data Home Medications ?Medication ?Instructions ?Recorded ?Confirmed eszopiclone 3 mg tablet (Lunesta) 3 mg PO DAILY 03/24/23 07/19/24 vortioxetine 20 mg tablet 20 mg PO DAILY 03/24/23 07/19/24 (Trintellix) lorazepam 1 mg tablet 4 mg PO DAILY PRN Anxiety 05/30/24 07/19/24 trazodone 150 mg tablet 150 mg PO HS 06/09/24 07/19/24 dicyclomine 20 mg tablet mg PO 07/19/24 07/19/24 Previous Rx's ?Medication ?Instructions ?Recorded hydroxyzine HCl 50 mg tablet 100 mg (2 x 50 mg) PO HS #180 tabs 05/14/23 gabapentin 100 mg capsule 100 mg PO DAILY #30 caps 03/03/24 ropinirole 3 mg tablet 3 mg PO DAILY #90 tabs 04/20/24 sodium,potassium,mag sulfates 17.5 See Rx Instructions PO .COMPLEX 05/30/24 gram-3.13 gram-1.6 gram oral soln #354 mL (Suprep Bowel Prep Kit) frislb-[id number]-[id number] 1 cap PO .With meals #90 caps 06/12/24 36,000-114,000-180,000 unit capsule,delay rel (Creon) rifaximin 550 mg tablet (Xifaxan) 550 mg PO TID 14 days #42 tabs 06/15/24 atorvastatin 80 mg tablet 80 mg PO DAILY #90 tabs 06/21/24 lactulose 20 gram oral packet 20 g PO DAILY PRN constipation #15 07/20/24 ea mineral oil (Fleet Mineral Oil 118 ml SC DAILY PRN constipation 07/20/24 enema) #133 mL Allergies Allergy/AdvReac Type Severity Reaction Status Date / Time No Known Allergies Allergy Verified 07/19/24 08:43 [facility] Disclaimer: The information contained in this section may have been updated after the patient was seen, as this information can be updated by other users. Medical History Family history of early CAD Family history of stroke Family history of CA (myocardial infarction) Left wrist fracture PID (pelvic inflammatory disease) Alcoholism Hypertension IBS (irritable bowel syndrome) Depression Anxiety Surgical History H/O unilateral salpingectomy S/P removal of left ovary History of surgery on right wrist Hx of section Family History Other Alzheimers disease Coronary artery disease Heart attack Stroke Social History Smoking Status: Current every day smoker tobacco type: cigarettes packs per day: 1 alcohol intake: never substance use type: denies use current occupational status: disabled Travel in the last 8 weeks?: None caffeine: Yes Have you lived/traveled outside [place] in past 30 days?: No Contact w/someone who lives/traveled outside US past 30 days?: No Exposure to someone with infectious disease in past 14 days?: No Do you have a fever (greater than 100.4 F or 38 C)?: No Have you tested positive for COVID-19?: No Exposed to someone with COVID-19 in past 14 days?: No Do you have a sore throat?: No Do you have a cough?: No Do you have any weakness?: No Do you have any diarrhea?: No Are you experiencing any unusual bleeding?: No Do you have any muscle aches/pain?: No Do you have any abdominal pain?: No Are you experiencing loss of taste or smell?: No ROS Obtained: Yes All systems reviewed & no additional complaints except as documented Physical Exam General General appearance: alert, in no apparent distress and cachectic Head Head exam: atraumatic and normocephalic Eye Eye exam: Present normal appearance, PERRL and EOMI ENT ENT exam: Present normal oropharynx, mucous membranes moist, normal external ear exam and other (Edentulous) Neck Neck exam: Present normal inspection, full ROM and trachea midline; Absent tenderness Chest Chest inspection: Present normal inspection and symmetric chest wall rise; Absent tenderness Respiratory Respiratory exam: Present normal lung sounds bilaterally; Absent respiratory distress, wheezes, stridor or accessory muscle use Cardiovascular Cardiovascular exam: Present regular rate and normal rhythm Abdominal Exam Abdominal exam: Present soft; Absent distention, tenderness or guarding Extremities Exam Extremities exam: Present normal inspection, full ROM and normal capillary refill; Absent tenderness or edema Back Exam Back exam: Present normal inspection and full ROM; Absent tenderness Neurological Exam Neurological exam: Present alert, oriented X3, CN II-XII intact and normal gait; Absent motor sensory deficit Psychiatric Psychiatric exam: Present normal affect and normal mood Skin Skin exam: Present warm and dry Medical Decision Making Medical Records Medical records reviewed: Yes I reviewed the patient's medical records. Screening: Per USPSTF and CDC recommendations, given the prevalence of disease in our region, it is our hospital?s policy to screen for HIV and viral Hepatitis for all patients aged 18 and over and those with ongoing risk factors. Gary Inquiry Pt receiving controlled substance: No Vital Signs: 07/20/24 11:11 07/20/24 11:18 07/20/24 11:30 Temperature 98.1 F Temperature Source Oral Pulse Rate 71 64 Pulse Rate [Left Radial] 66 Pulse Rate [Orthostatic Lying] Pulse Rate [Orthostatic Sitting] Pulse Rate [Orthostatic Standing] Respiratory Rate 20 19 Blood Pressure 93/59 L 94/61 L Blood Pressure [Orthostatic Lying] Blood Pressure [Orthostatic Sitting] Blood Pressure [Orthostatic Standing] Blood Pressure [Right Arm] 93/59 L Blood Pressure Mean [Right Arm] 70 02 Sat by Pulse Oximetry 96 95 95 Oxygen Delivery Method Room Air 07/20/24 11:37 07/20/24 11:49 07/20/24 11:50 Temperature Temperature Source Pulse Rate 57 L 67 Pulse Rate [Left Radial] Pulse Rate [Orthostatic Lying] 68 Pulse Rate [Orthostatic Sitting] 63 Pulse Rate [Orthostatic Standing] 70 Respiratory Rate 19 19 Blood Pressure 94/56 L 90/70 L Blood Pressure [Orthostatic Lying] 94/56 L Blood Pressure [Orthostatic Sitting] 90/70 L Blood Pressure [Orthostatic Standing] 93/63 L Blood Pressure [Right Arm] Blood Pressure Mean [Right Arm] 02 Sat by Pulse Oximetry 94 L 95 Oxygen Delivery Method 07/20/24 11:51 07/20/24 12:31 07/20/24 13:00 Temperature Temperature Source Pulse Rate 45 L 44 L Pulse Rate [Left Radial] Pulse Rate [Orthostatic Lying] Pulse Rate [Orthostatic Sitting] Pulse Rate [Orthostatic Standing] Respiratory Rate 21 18 21 Blood Pressure 93/63 L 115/64 125/66 Blood Pressure [Orthostatic Lying] Blood Pressure [Orthostatic Sitting] Blood Pressure [Orthostatic Standing] Blood Pressure [Right Arm] Blood Pressure Mean [Right Arm] 02 Sat by Pulse Oximetry 96 94 L 99 Oxygen Delivery Method 07/20/24 13:30 07/20/24 13:50 Temperature 98.1 F Temperature Source Pulse Rate 48 L Pulse Rate [Left Radial] Pulse Rate [Orthostatic Lying] Pulse Rate [Orthostatic Sitting] Pulse Rate [Orthostatic Standing] Respiratory Rate 17 20 Blood Pressure 118/64 118/64 Blood Pressure [Orthostatic Lying] Blood Pressure [Orthostatic Sitting] Blood Pressure [Orthostatic Standing] Blood Pressure [Right Arm] Blood Pressure Mean [Right Arm] 02 Sat by Pulse Oximetry Oxygen Delivery Method Room Air Lab Data Lab results reviewed: Yes I reviewed the patient's lab results. Lab Results 07/20/24 11:15: Urine Color Yellow, Urine Appearance Sl cloudy, Urine pH 7.0, Ur Specific [place] 1.020, Urine Protein Negative, Urine Glucose (UA) Negative, Urine Ketones Trace, Urine Blood Negative, Urine Nitrate Negative, Urine Bilirubin Negative, Urine Urobilinogen 0.2, Ur Leukocyte Esterase Negative, Urine RBC None, Urine WBC Occasional, Ur Squamous Epith Cells 10-20, Urine Bacteria Trace 07/20/24 11:25: WBC 6.3, RBC 4.20, Hgb 12.4, Hct 37.7, MCV 89.8, MCH 29.5, MCHC 32.9, RDW 13.2, Plt Count 326, MPV 8.5, Neut % (Auto) 60.8, Lymph % (Auto) 32.0, [place] % (Auto) 4.7, Eos % (Auto) 1.7, Baso % (Auto) 0.6, Neut # (Auto) 3.9, Lymph # (Auto) 2.0, [place] # (Auto) 0.3, Eos # (Auto) 0.1, Baso # (Auto) 0.0, Sodium 140, Potassium 4.1, Chloride 106, Carbon Dioxide 30, Anion Gap 8.1, BUN 13, Creatinine 0.90, Estimated Creat Clear 37, Estimated GFR 63, Est GFR ( Amer) 77, Glucose 114 H, Calcium 9.3, Phosphorus 2.6, Magnesium 1.9, Total Bilirubin 0.3, AST 30, ALT 24, Alkaline Phosphatase 93, Troponin I < 0.01, Total Protein 6.2 L, Albumin 3.7, Globulin 2.5, Albumin/Globulin Ratio 1.5, Lipase 86, TSH 0.64 D, Thyroxine (T4) 9.4 07/20/24 11:37: VBG pH 7.36, VBG pCO2 47.3, VBG pO2 51.5 H, VBG HCO3 26.1, VBG Total CO2 27.5 H, VBG O2 Saturation 82.0 H, VBG Base Excess 0.6, VBG Lactic Acid 2.6 H 07/20/24 11:25 07/20/24 11:25 Orders (Tests/Meds): ED MEDICATIONS Discontinued Medications Generic Name Dose Route Start Last Admin Trade Name Freq PRN Reason Stop Dose Admin Lactated Ringer's 1,000 mls @ 999 mls/hr 07/20/24 11:38 07/20/24 11:42 Lactated Ringer's 1000 Ml Bag IV 07/20/24 12:38 999 mls/hr .Q1H1M ONE Administration Iopamidol 70 ml 07/20/24 12:14 07/20/24 12:15 Iopamidol-370 (76%);100ml Bottle IV 07/20/24 12:15 70 ml ONCE ONE Administration Lactulose 20 gm 07/20/24 13:31 07/20/24 13:37 Lactulose 20gm/30ml Udc PO 07/20/24 13:32 Not Given ONCE ONE Sodium Chloride 10 ml 07/20/24 12:14 07/20/24 12:15 Sodium Chloride 0.9% 10ml Syr (Rad Only) IV 07/20/24 12:15 10 ml ONCE ONE Administration Sodium Chloride 50 ml 07/20/24 12:14 07/20/24 12:15 0.9 % Sodium Chloride 50 Ml Vial IV 07/20/24 12:15 50 ml ONCE ONE Administration ORDERS Category Date Time Status CT abdomen pelvis w con Stat Cat Scan 07/20/24 11:37 Completed CTA Chest [CT angio chest PE protocol] Stat Cat Scan 07/20/24 11:37 Completed Complete Blood Count Auto Diff Stat Lab 07/20/24 11:25 Completed Comprehensive Metabolic Panel Stat Lab 07/20/24 11:25 Completed Lipase Stat Lab 07/20/24 11:25 Completed MAG [Magnesium] Stat Lab 07/20/24 11:25 Completed PHOS [Phosphorous] Stat Lab 07/20/24 11:25 Completed T4 (Thyroxine) Stat Lab 07/20/24 11:25 Completed TSH [Thyroid Stimulating Hormone] Stat Lab 07/20/24 11:25 Completed Trop I [Troponin I] Stat Lab 07/20/24 11:25 Completed UA [Urinalysis and Microscopic] Stat Lab 07/20/24 11:15 Completed VBG [Venous Blood Gas] Stat RT 07/20/24 11:37 Completed ECG Data Tracing #1: I reviewed this ECG and interpreted as documented below: Normal sinus rhythm with a ventricular to [address] changes concerning for ischemia. Normal intervals ECG initial impression date: 07/20/24 ECG initial impression time: 11:16 Medical Decision Narrative: In summary, this patient is a 64-year-old female presenting to the Emergency Department for evaluation of unintentional weight loss, poor appetite, generalized abdominal pain that is chronic, and syncopal episodes. She has been ongoing since March, and she has been seen by primary care, GI. She notes issues seem to have started after having her teeth removed. Differential diagnoses considered include but are not limited to malignancy, anxiety, functional abdominal pain, colitis, gastritis, dehydration, orthostatic hypotension, protein malnutrition, anorexia. Ruling out the most morbid conditions drove assessment. It should be noted patient's history includes tobacco use, anxiety, hyperlipidemia which are not at goal therapy. This complicates all aspects of care by increasing patient's risk for morbidity. I reviewed patient's past medical records and noted prior PCP evaluations for similar issues and maintenance of health as well as prior GI evaluations with endoscopy and CT as detailed in HPI. She also had a CT lung protocol in March which was reassuring against acute malignancy, she had stable nodules and recommended follow-up in 12 months. On exam, the patient is lying in bed in no acute distress with normal neuroexam, benign cardiopulmonary exam, benign abdominal exam. Vitals are reassuring on cardiac telemetry, though blood pressure is soft with blood pressure 90s over 60s MAP greater than 65. She is not currently in any acute distress and has no recent changes in symptoms. She actually reports decrease in frequency of syncopal episodes. Workup included CBC, CMP, troponin, TSH, T4, magnesium, phosphorus, CTA PE protocol, CT abdomen pelvis with IV contrast to evaluate for possible masses/malignancy. She was given a bolus of IV fluids. EKG obtained is reassuring. I independently interpreted CT scans prior to the radiologist read and noted very large colonic stool burden with significant gaseous distention of her colon, no obvious obstructive process. Please see their read for final interpretation. Labs were obtained that demonstrated reassuring CBC with no significant leukocytosis or anemia, very mildly elevated lactic acid but otherwise reassuring blood gas, chemistry is reassuring with normal kidney function, normal liver enzymes. Urinalysis is not concerning for infection.. On reassessment, patient had good improvement after administration of a bolus of IV fluids. Her blood pressure is now normal with systolics in the low 1 teens, improved from 90s. I advised her that she has significant stool burden and recommended enema and lactulose, which she does not want to do here. Given this, she was given prescriptions for these. I feel that her symptoms are likely related to dehydration, poor oral intake, which is complicated by her constipation and edentulousness. She is already following with GI who is managing her bowel issues, so advised that she keep close follow-up with them. I also recommended that she take her FiberCon as prescribed by them. She was discharged with very strict return precautions. Critical Care Critical Care Time Critical Care Time: No
[2024-07-20 11:42] LABS: Basophils % 0.6 % (0.1-2.0); Eosinophils # 0.1 Kmm3 (0.0-0.4); Eosinophils % 1.7 % (0.1-12.0); Hematocrit 37.7 % (37.0-47.0); Hemoglobin 12.4 g/dL (12.2-16.2); Immature Granulocytes # 0.01 10^3uL; Immature Granulocytes % 0.2 %; Mean Corpuscular HGB Conc 32.9 g/dL (31.8-35.4); Mean Corpuscular Hemoglobin 29.5 pg (27.0-31.2); Mean Corpuscular Volume 89.8 fl (81-99); Mean Platelet Volume 8.5 fl (7.4-10.4); Monocytes # 0.3 K/mm3 (0.1-1.0); Monocytes % 4.7 % (1.7-9.3); Neutrophils # 3.9 K/mm3 (1.8-7.8); Neutrophils % 60.8 % (37.0-80.0); Nucleated Red Blood Cells # 0 10^3/uL; Nucleated Red Blood Cells % 0 %; Platelet Count 326 K/mm3 (142-424); Red Cell Distribution Width 13.2 % (11.5-17.5); Red Cell Distribution Width-SD 43.4 fL; White Blood Count 6.3 K/mm3 (4.8-10.8)
[2024-07-20] MEDS: LACTATED RINGERS 1000ML 1,000 ML 999 ML IV (11:42)
[2024-07-20 11:49] LABS: Lipase 86 U/L (23-300)
[2024-07-20 11:50] LABS: Alanine Aminotransferase 24 U/L (12-78); Albumin Level 3.7 g/dl (3.5-5.0); Albumin/Globulin Ratio 1.5 (1.1-1.8); Alkaline Phosphatase 93 U/L (38-126); Anion Gap 8.1 mEq/L (5-15); Aspartate Amino Transferase 30 U/L (14-36); Bilirubin,Total 0.3 mg/dl (0.2-1.3); Blood Urea Nitrogen 13 mg/dl (7-17); Calcium 9.3 mg/dl (8.4-10.2); Carbon Dioxide 30 mmol/L (22.0-30.0); Chloride 106 mmol/L (98-107); Creatinine Clearance Estimated 37 mL/min (50-200); Estimated Glomerular Filt Rate 63 ml/min (>60); GFR (African American) 77 ML/MIN (>60); Globulin 2.5 g/dL (1.3-3.2); Glucose 114 mg/dl (74-100); Magnesium 1.9 mg/dl (1.6-2.3); Phosphorous 2.6 mg/dl (2.5-4.5); Potassium 4.1 mmoL/L (3.5-5.1); Sodium 140 mmol/L (136-145); Total Protein,Serum 6.2 g/dl (6.3-8.2)
[2024-07-20 11:50] LABS: WBC,Urine Occasional #/hpf (0-3)
[2024-07-20 11:51] LABS: Bacteria,Urine Trace /lpf
[2024-07-20 11:52] LABS: Lactate Venous 2.6 mmol/L (0.4-2.0); VBG Base Excess 0.6 mmol/L (-2.4-2.3); VBG HCO3 26.1 mmol/L (23-30); VBG PCO2 47.3 mmol/L (35-51); VBG PH 7.36 mmol/L (7.31-7.41); VBG PO2 51.5 mmol/L (28-40); VBG Total CO2 27.5 mmol/L (23-27)
[2024-07-20 12:04] LABS: Troponin I < 0.01 ng/ml (0.00-0.034)
[2024-07-20 12:07] LABS: T4 (Thyroxine) 9.4 ug/dl (5.53-11.0)
[2024-07-20] MEDS: IOPAMIDOL-370 (76%);100ML BOTTLE 70 ML IV (12:15)
[2024-07-20] MEDS: SODIUM CHLORIDE 0.9% 10ML SYR (RAD ONLY) 10 ML IV (12:15)
[2024-07-20] MEDS: 0.9 % SODIUM CHLORIDE 50 ML VIAL IV (12:15)
[2024-07-20 12:20] LABS: Thyroid Stimulating Hormone 0.64 uIU/mL (0.465-4.68)
[2024-07-20 15:53] LABS: Reflex Lactic Add Lactic Reflex
== END 2024-07-20 13:51 | disposition home or self-care (01) ==
PROVIDERS: Emergency Provider Emergency Medicine; PCP Family Medicine
DX: E86.0 Dehydration (principal); R10.817 Generalized abdominal tenderness; K59.00 Constipation, unspecified; E46 Unspecified protein-calorie malnutrition; R55 Syncope and collapse; F17.210 Nicotine dependence, cigarettes, uncomplicated
CPT/HCPCS: 71275; 74177; 80053; 81001; 82803; 83690; 83735; 84100; 84436; 84443; 84484; 85025; 93005; 96360; 99285; J7120; Q9967

== ENCOUNTER 2024-12-07 07:57 | Emergency (ER) | payer MEDICARE, SELFPAY ==
--- OUTSIDE RECORDS SUMMARY | 2020-11-27 06:50 | XMS_ITS | Continuity of Care Document ---
Author Organization [facility] Address [address] [place] [address] Phone Care Team Providers Care Brush Loader And Handle Attacher Name Role Phone Sacha Beaver MD Unavailable [...] Diagnoses Date Provider Providers Copied on Encounter [facility], [address] [place], [place], [id number], [place] tel:[phone] [facility] right hand Complaint (chief complaint) Closed nondisplaced fracture of proximal phalanx of right little finger with routine healing, subsequent encounter 1 S[address] Goncalves. [address] [place] [address], [id number] , [place]. tel:[phone] Referring Provider: [place], [address]. tel:[phone] [facility], [address] [place] [address], [id number], tel:[phone] [facility] right hand Complaint (chief complaint) Closed nondisplaced fracture of proximal phalanx of right little finger with routine healing, subsequent encounter Sep-2 1 S[address] Goncalves. [address] [place] [address], [id number] , . tel:[phone] Referring Provider: Jose Roberto Newton, [address] [place], [address]. tel:[phone] [facility], [address] [place] [address], [id number], tel:[phone] [place] [address] Closed nondisplaced fracture of proximal phalanx of right little finger, initial encounter Sep-1 1 S[address] Goncalves. [address] [place] [address], [id number] , [place]. tel:[phone] Referring Provider: Sacha Beaver, [address] [place] [address], [id number] . tel:[phone] Intermediate New Patient Visit [facility], [address] [place] [address], [id number], tel:[phone] [facility] right hand Complaint (chief complaint) Body mass index (BMI) 19 or less, adultClosed nondisplaced fracture of proximal phalanx of right little finger, initial encounter Sep-1 [address] Goncalves. [address] [place] [address], [id number] , [place]. tel:[phone] Referring Provider: Mayra [address] [place], [address]. tel:[phone] Family History Family Member Type Diagnosis Age At Onset Father Problem congenital heart disease (Ca use Of ) Mother Problem alzheimer's disease (Cause O f ) Payers Payer name Insurance type Covered libertarian ID Mone ob[place](s) [facility] For Life O CI [id number] Social History Type Description Quantity Date Captured [...] bull and fell off. Patient went to [facility] where she had x-rays and was placed [...]
[2024-12-07 07:58] VITALS: BP 108/52; PULSE 60; RESP 20; TEMP 36.6; O2SAT 95; BMI 15.0
[2024-12-07 08:06] VITALS: BP 108/52; PULSE 63; O2SAT 95
--- OUTSIDE RECORDS SUMMARY | 2024-12-07 08:06 | XMS_ITS | Clinical Summary ---
Author Organization [facility] Address [address] [place] [address] Phone Care Team Providers Care Adjunct Philosophy Faculty Name Role Phone Unavailable Primary Care Provider Unavailabl e Social History Tobacco Use Types Packs/Day Years Used Date Smoking Tobacco: Never Assessed Comments Unknown Sex and Gender Information Value Date Recorded Sex Assigned at Not on file Legal Sex Female 9:13 AM EDT Gender Identity Not on file Sexual Orientation Not on file Plan of Treatment Health Maintenance Due Date Last Done Comments Annual Wellness Exam 1963 Hepatitis C Screening 1980 DTaP/TDaP/Td (1 - Tdap) 1981 Cologuard 07/01/2007 Colon Cancer Screening 07/01/2007 Colonoscopy 07/01/2007 FIT 07/01/2007 Sigmoidoscopy 07/01/2007 Virtual Colonography 07/01/2007 Pneumococcal Vaccine 50+ (1 of 1 - PCV) 2012 Zoster (1 of 2) 2012 COVID-19 Vaccine ( - 2024-2 6 season) 2024 Influenza Vaccine (#1) 2024 Hepatitis B Vaccine Aged Out No longe r eligible based on patient's age to complete this topic Meningococcal B Vaccine Aged Out No l onger eligible based on patient's age to complete this topic
--- NOTE | 2024-12-07 08:11 | HMH.EDGENADL ---
Discharge Plan Disposition Patient Disposition: Home, Self-Care Prescriptions Prescriptions: No Action lorazepam 1 mg tablet 4 mg PO DAILY PRN (Reason: Anxiety) Patient Comments: TAKE 1 TABLET BY MOUTH THREE TIMES A DAY NEEDED DO NOT FILL UNTIL 01/20/2023 Trintellix 20 mg tablet 20 mg PO DAILY Patient Comments: TAKE 1 TABLET BY MOUTH EVERY DAY eszopiclone [Lunesta] 3 mg tablet 3 mg PO DAILY Patient Comments: TAKE 1 TABLET BY MOUTH EVERYDAY AT BEDTIME magnesium citrate Solution 150 ml PO DAILY Qty: 296 5RF dicyclomine 20 mg tablet 20 mg PO BID Qty: 60 3RF simethicone 125 mg tablet,chewable 125 mg PO QID PRN (Reason: abdominal distention) Qty: 120 5RF hydroxyzine HCl 50 mg tablet 100 mg PO HS Qty: 180 3RF Linzess 72 mcg capsule 72 mcg PO DAILY Qty: 30 2RF ropinirole 3 mg tablet 3 mg PO DAILY Qty: 90 3RF atorvastatin 80 mg tablet 80 mg PO DAILY Qty: 90 3RF gabapentin 100 mg capsule 100 mg PO DAILY Qty: 30 5RF trazodone 150 mg tablet 150 mg PO HS Referrals Follow up/Referrals: You Orellana MD [Primary Care Provider, Family Practice] - See instructions Activity Restrictions/Add. Instructions Additional Instructions/Restrictions: It appears that you had a partial prolapse of your rectum, which is when the rectum protrudes slightly from the anus. I do feel that we were able to get it reduced here in the emergency department. I do want you to follow-up with Dr. Herr regarding this as you may need to be referred to a surgeon if this continues to be an issue. try to avoid straining while having a bowel movement. You can use a hemorrhoid pillow in the meantime for any discomfort. If you develop any new or worsening symptoms, or if you become concerned for your help for any reason, return to the emergency department for evaluation Clinical Impressions Clinical Impression: Incomplete rectal prolapse Stand Alone Forms Stand Alone Forms: Work/School Release Print Language Print Language: Finnish Discharge ED Provider: Luis Alfredo Tamayo General Adult HPI General Chief complaint: PAIN Stated complaint: Pain in Rectum Time Seen by Provider: 12/07/24 08:05 Mode of Arrival: Ambulatory Source of Information: Patient Limitations: No Limitations History of Present Illness HPI narrative: Saranya Boss is a 64y female with a history of IBS followed by Dr. Herr and depression who presents to the emergency department for complaints of rectal pain. Patient states that she has had intermittent pain in her rectum that typically goes away on its own after a few hours, however starting 2 days ago, she has had pain in her rectum that makes it difficult to sit and has not gone away. She denies any bloody stools. She does state that she constantly has diarrhea and last had a large bowel movement yesterday. She denies any dysuria or hematuria. She denies any abdominal pain. She states that she is post to see Dr. Herr next Wednesday and they have her on medications for her IBS. Related Data Home Medications ?Medication ?Instructions ?Recorded ?Confirmed eszopiclone 3 mg tablet (Lunesta) 3 mg PO DAILY 03/24/23 11/13/24 vortioxetine 20 mg tablet 20 mg PO DAILY 03/24/23 11/13/24 (Trintellix) lorazepam 1 mg tablet 4 mg PO DAILY PRN Anxiety 05/30/24 11/13/24 trazodone 150 mg tablet 150 mg PO HS 06/09/24 11/13/24 Previous Rx's ?Medication ?Instructions ?Recorded hydroxyzine HCl 50 mg tablet 100 mg (2 x 50 mg) PO HS #180 tabs 05/14/23 ropinirole 3 mg tablet 3 mg PO DAILY #90 tabs 04/20/24 atorvastatin 80 mg tablet 80 mg PO DAILY #90 tabs 06/21/24 gabapentin 100 mg capsule 100 mg PO DAILY #30 caps 08/30/24 linaclotide 72 mcg capsule 72 mcg PO DAILY #30 caps 10/12/24 (Linzess) dicyclomine 20 mg tablet 20 mg PO BID #60 tabs 11/13/24 magnesium citrate 150 ml PO DAILY #296 mL 11/13/24 simethicone 125 mg chewable tablet 125 mg PO QID PRN abdominal 11/13/24 distention #120 tabs Allergies Allergy/AdvReac Type Severity Reaction Status Date / Time No Known Allergies Allergy Verified 11/13/24 08:46 [facility] Disclaimer: The information contained in this section may have been updated after the patient was seen, as this information can be updated by other users. Medical History Family history of early CAD Family history of stroke Family history of GA (myocardial infarction) Left wrist fracture PID (pelvic inflammatory disease) Alcoholism Hypertension IBS (irritable bowel syndrome) Depression Anxiety Surgical History H/O unilateral salpingectomy S/P removal of left ovary History of surgery on right wrist Hx of section Family History Other Alzheimers disease Coronary artery disease Heart attack Stroke Social History (Updated 11/13/24 @ 08:58 by Clare Suarez MA) Smoking Status: Current every day smoker tobacco type: cigarettes packs per day: 1 alcohol intake: never substance use type: denies use current occupational status: disabled Travel in the last 8 weeks?: None caffeine: Yes Have you lived/traveled outside US in past 30 days?: No Contact w/someone who lives/traveled outside US past 30 days?: No Exposure to someone with infectious disease in past 14 days?: No Do you have a fever (greater than 100.4 F or 38 C)?: No Have you tested positive for COVID-19?: No Exposed to someone with COVID-19 in past 14 days?: No Do you have a sore throat?: No Do you have a cough?: No Do you have any weakness?: No Do you have any diarrhea?: No Are you experiencing any unusual bleeding?: No Do you have any muscle aches/pain?: No Do you have any abdominal pain?: No Are you experiencing loss of taste or smell?: No ROS Obtained: Yes Systems reviewed as appropriate & no additional complaints except as documented Physical Exam General General appearance: alert and in no apparent distress Head Head exam: atraumatic Eye Eye exam: Present normal appearance ENT ENT exam: Present normal external ear exam Neck Neck exam: Present full ROM Chest Chest inspection: Present symmetric chest wall rise Respiratory Respiratory exam: Present normal lung sounds bilaterally; Absent respiratory distress Cardiovascular Cardiovascular exam: Present regular rate and normal rhythm Abdominal Exam Abdominal exam: Present soft; Absent tenderness or guarding Rectal Exam Rectal exam: Present normal rectal tone and hemorrhoids (Small nonthrombosed hemorrhoid at 6 oclock position. Small prolapsed rectum) Extremities Exam Extremities exam: Present normal inspection Back Exam Back exam: Present normal inspection Neurological Exam Neurological exam: Present alert and oriented X3 Psychiatric Psychiatric exam: Present normal affect Skin Skin exam: Present warm and dry Medical Decision Making Medical Records Screening: Per USPSTF and CDC recommendations, given the prevalence of disease in our region, it is our hospital?s policy to screen for HIV and viral Hepatitis for all patients aged 18 and over and those with ongoing risk factors. Gary Inquiry Pt receiving controlled substance: No Vital Signs: 12/07/24 07:58 12/07/24 08:06 Temperature 97.9 F Temperature Source Oral Pulse Rate 63 Pulse Rate [Left Radial] 60 Respiratory Rate 20 Blood Pressure 108/52 L Blood Pressure [Right Arm] 108/52 L Blood Pressure Mean [Right Arm] 70 02 Sat by Pulse Oximetry 95 95 Oxygen Delivery Method Room Air Room Air Medical Decision Narrative: Saranya Boss is a 64y female with a history of IBS followed by Dr. Herr and depression who presents to the emergency department for complaints of rectal pain. Patient states that she has had intermittent pain in her rectum that typically goes away on its own after a few hours, however starting 2 days ago, she has had pain in her rectum that makes it difficult to sit and has not gone away. She denies any bloody stools. She does state that she constantly has diarrhea and last had a large bowel movement yesterday. She denies any dysuria or hematuria. She denies any abdominal pain. She states that she is post to see Dr. Herr next Wednesday and they have her on medications for her IBS. On arrival, patient is hemodynamically stable, in no acute distress, breathing comfortably on room air. Physical exam, as stated above, reveals nontoxic-appearing female in no distress. Abdomen soft, nontender nondistended. She has a small nonthrombosed hemorrhoid at the 6 o'clock position but she does appear to have an incomplete rectal prolapse. After discussing my findings with the patient, she was in agreement to try manual reduction. After lubricating finger, was able to successfully reduce the partial rectal prolapse. No bleeding was noted. On reassessment approximately 20 minutes later, patient is resting comfortably. I do feel that she is appropriate for discharge at this time patient is in agreement with this plan. I did encourage her to follow-up with Dr. Herr regarding her chronic issues and the rectal prolapse today. I did discuss that she may need to be referred to a surgeon if this becomes a recurring issue and return to the emergency department if she develops any worsening pain, bloody stools, difficulty having a bowel movement. All questions were answered. I did encourage her to use a hemorrhoid pillow for comfort. She was then discharged from the emergency department in stable condition. Critical Care Critical Care Time Critical Care Time: No
[2024-12-07 08:53] VITALS: BP 110/80; PULSE 80; RESP 20; TEMP 36.8; O2SAT 98
== END 2024-12-07 09:11 | disposition home or self-care (01) ==
PROVIDERS: Emergency Provider Student in an Organized Health Care Education/Training Program; PCP Family Medicine
DX: K62.3 Rectal prolapse (principal)
CPT/HCPCS: 99282

== ENCOUNTER 2024-12-20 09:08 | Outpatient (CLI) | payer MEDICARE, SELFPAY ==
--- OUTSIDE RECORDS SUMMARY | 2020-11-27 05:50 | XMS_ITS | Continuity of Care Document ---
Author Organization [facility] Address [address] [place] [address] Phone Care Team Providers Care Construction Site Manager Name Role Phone Sacha Beaver MD Unavailable Unavailable Allergies, Adverse Reactions, Alerts Substance Reaction Status Criticality No Known Allergies Active No Inform ation Medications Medication Instructions Dosage Effective Dates (start - stop) Status Comments TRINTELLIX (unknown strength) take 1 tablet by oral route every day at the same time each day Not Available - Active GABAPENTIN (unknown strength) take 1 tablet by oral route 3 times every day Not Available - Active ATORVASTATIN CALCIUM (unknown strength) take 1 tablet by oral route every day Not Available - Active Procedures Procedure Date X-RAY Finger 2 Or More Views Follow Up Care X-RAY Hand 3 View Min Follow Up Care Fx Phalangeal Shaft Cl. W/O Manipulation Intermediate New Patient Visit Advance Directives Directive Yes / No Effective Date File Name No Information Encounters Encounter Description Practice Location Reason(s) For Visit Diagnoses Date Provider Providers Copied on Encounter [facility] [place], [address] [place], [place], [id number], [place] tel:[phone] [facility] right hand Complaint (chief complaint) Closed nondisplaced fracture of proximal phalanx of right little finger with routine healing, subsequent encounter [address]on[address]. [address] [place] [address], [id number] , [place]. tel:[phone] Referring Provider: Jose Roberto Newton, [address] [place] [address], [address]. tel:[phone] [facility] [place], [address] [place] [address], [id number], tel:[phone] [facility] right hand Complaint (chief complaint) Closed nondisplaced fracture of proximal phalanx of right little finger with routine healing, subsequent encounter Sep-2 [address]on[address] [place] [address], [id number] , [place]. tel:[phone] Referring Provider: Jose Roberto Newton, [facility] [place] [address], [address]. tel:[phone] [facility] [place], [address] [place] [address], [id number], tel:[phone] [place] [address] Closed nondisplaced fracture of proximal phalanx of right little finger, initial encounter Sep-1 [address]on[address] [place] [address], [id number] , [place]. tel:[phone] Referring Provider: Sacha Beaver, [address] [place] [address], [id number] . tel:[phone] Intermediate New Patient Visit [facility] [place], [address] [place] [address], [id number], tel:[phone] [place] [address] right hand Complaint (chief complaint) Body mass index (BMI) 19 or less, adultClosed nondisplaced fracture of proximal phalanx of right little finger, initial encounter Sep-1 [address]on[address]ves[address] [place] [address], [id number] , [place]. tel:[phone] Referring Provider: Jose Roberto Newton [facility] [address] [place] [address], [address]. tel:[phone] Family History Family Member Type Diagnosis Age At Onset Father Problem congenital heart disease (Ca use Of ) Mother Problem alzheimer's disease (Cause O f ) Payers Payer name Insurance type Covered republican ID Mone obregon(s) [facility] For Life O CI [id number] Social History Type Description Quantity Date Captured Comments Alcohol Use Details Unknown Caffeine Use Details Unknown Tobacco Use Status Cigarette smoker Smoking Status Current every day smoker 2020 Sex Female Chief Complaint And Reason For Visit From encounter dated '11/27/2020 10:50'. right hand Complaint (chief complaint). Description: The location is whole finger. Patient is here for follow up of right small finger injury which occurred on 10/25/2020 as a result of falling off a mechanical bull. Patient reports her pain isn't too bad currently due to taking 4 Ibuprofen earlier. Patient reports she has to take a lot of Ibuprofen to help with the pain. Patient reports she still has a lot of pain without medication. Patient denies any numbness/tingling. Patient repots she is still sleeping in the brace but isn't wearing it much throughout the day due to not being able to do many activities with it on. Reason For Referral Reason For Referral No Information Plan Of Treatment Date Type Action Status Goal Prescribed Diet Education co mpleted Goal Tobacco cessation counseling completed Referral Ordered: X-RAY Finger 2 Or More Views RT ordered Referral Ordered: X-RAY Hand 3 View Min RT ordered History Of Present Illness Encounter Date Complaint History Of Prese nt Illness right hand Complaint The locatio n is whole finger. Patient is here for follow up of right small finger injury which occurred on 10/25/2020 as a result of falling off a mechanical bull. Patient reports her pain isn't too bad currently due to taking 4 Ibuprofen earlier. Patient reports she has to take a lot of Ibuprofen to help with the pain. Patient reports she still has a lot of pain without medication. Patient denies any numbness/tingling. Patient repots she is still sleeping in the brace but isn't wearing it much throughout the day due to not being able to do many activities with it on. right hand Complaint Patient is here for follow up of right hand fracture which occurred on 10/25/2020 as a result of falling off a mechanical bull. Patient rates her current pain level 1-2/10. Patient denies any numbness/tingling and doesn't need any pain medication. Patient has been taking her ulnar gutter fracture brace off occasionally due to it being too tight and causing bruising at times. right hand Complaint The locatio n is little finger and down into ulnar aspect of wrist. The client states the symptoms are acute. Patient is here for right hand injury which occurred on 10/25/2020 when she was riding a mechanical bull and fell off. Patient went to [facility] where she had x-rays and was placed in a splint. Patient rates her current pain level 7/10 and 12/10 at worst. Patient denies any numbness/tingling at her hand/fingers. Patient is taking Aleve and Tylenol for pain and is also icing and elevating. Patient has had no prior injury to he right hand in the past. Functional Status Date Functional Assessmen t No Information Instructions Date Instruction Additional Infor mation Prescribed Diet Education Relate d to Body mass index [BMI] 19.9 or less, adult Not Applicable Related to Body mass index [BMI] 19.9 or less, adult Assessments Type Assessment Date assessment Closed nondisplaced fracture of proximal phalanx of right little finger with routine healing, subsequent encounter impression 60-year-old female p resents for follow-up visit pertaining to nondisplaced fracture of the proximal phalanx of the right little finger. No tenderness to palpation at the site of fracture today, she does have some pain at the PIP as well as the reduced mobility secondary to immobilization. X-ray was reviewed with the patient which shows healing fracture without increase in angulation or displacement. We discussed range of motion exercises and patient understood.-Follow-up as needed Patient Care Teams Name Effective Dates (start - stop) Status Members No Information
--- NOTE | 2024-12-20 09:09 | XR_ITS ---
FINAL REPORT CLINICAL HISTORY: Left wrist ganglion cyst FINDINGS: AP, oblique, and lateral views of the left wrist were obtained. There is no prior exam for comparison. There is no acute fracture or dislocation. There are postoperative changes from ORIF of the distal radius. The hardware is intact. There is multijoint degenerative disease, most pronounced involving the first carpometacarpal joint. IMPRESSION: No acute osseous abnormality of the left wrist. Degenerative joint disease. Ganglion cyst is not visualized on plain radiographs. Consider MRI. Reviewed, Interpreted and Dictated by La Au MD Transcribed by Skyla Boston Authenticated and [facility]
--- OUTSIDE RECORDS SUMMARY | 2024-12-20 09:12 | XMS_ITS | Clinical Summary ---
Author Organization [facility] Address [address] [place] [address] Phone Care Team Providers Care Any Commodity Buyer Name Role Phone Unavailable Primary Care Provider [...]
== END 2024-12-20 23:59 | disposition home or self-care (01) ==
LOC: RAD 09:09
PROVIDERS: PCP Family Medicine; Visit Provider Physician Assistant
DX: M67.432 Ganglion, left wrist (principal); M19.032 Primary osteoarthritis, left wrist; Z96.632 Presence of left artificial wrist joint
CPT/HCPCS: 73110

== ENCOUNTER 2024-12-27 06:55 | Outpatient (CLI) | payer MEDICARE, SELFPAY ==
--- OUTSIDE RECORDS SUMMARY | 2020-11-27 05:50 | XMS_ITS | Continuity of Care Document ---
[facility] Organization [facility] Address [address] [place] [address] Phone Care Team Providers Care Content Administrator Name Role Phone Sacha Beaver MD Unavailable [...] Diagnoses Date Provider Providers Copied on Encounter [facility], [address] [place], [place], [id number], [place] tel:[phone] [facility] right hand Complaint (chief complaint) Closed nondisplaced fracture of proximal phalanx of right little finger with routine healing, subsequent encounter [address] S[address] Goncalves. [address] [place] [address], [id number] , [place]. tel:[phone] Referring Provider: Jose Roberto Newton, [address] [place] [address], [id number]. tel:[phone] [facility], [address] [place] [address], [id number], tel:[phone] [facility] right hand Complaint (chief complaint) Closed nondisplaced fracture of proximal phalanx of right little finger with routine healing, subsequent encounter Sep-2 1 Sd Goncalves. [address] [place] [address], [id number] , [place]. tel:[phone] Referring Provider: Jose Roberto Newton, [facility] [place] [address], [id number]. tel:[phone] [facility], [address] [place] [address], [id number], tel:[phone] [place] [address] Closed nondisplaced fracture of proximal phalanx of right little finger, initial encounter Sep-1 1 Sd Goncalves. [address] [place] [address], [id number] , [place]. tel:[phone] Referring Provider: Sacha Beaver, [address] [place] [address], [id number] . tel:[phone] Intermediate New [facility], [address] [place] [address], [id number], tel:[phone] [place] [address] right hand Complaint (chief complaint) Body mass index (BMI) 19 or less, adultClosed nondisplaced fracture of proximal phalanx of right little finger, initial encounter Sep-1 1 Sd Goncalves. [address] [place] [address], [id number] , [place]. tel:[phone] Referring Provider: Jose Roberto Newton [facility] [address] [place] [address], [address]. tel:[phone] Family History Family Member Type Diagnosis Age At Onset Father Problem congenital heart disease (Ca use Of ) Mother Problem alzheimer's disease (Cause O f ) Payers Payer name Insurance type Covered green party ID [place]one [place](s) [facility] O CI [id number] Social History Type Description Quantity Date Captured [...] bull and fell off. Patient went to [facility] where she had x-rays and was placed [...]
--- OUTSIDE RECORDS SUMMARY | 2024-12-27 06:59 | XMS_ITS | Clinical Summary ---
Author Organization [facility] Address [address] [place] [address] Phone Care Team Providers Care Machine Accountant Name Role Phone Unavailable Primary Care Provider [...]
== END 2024-12-27 23:59 | disposition home or self-care (01) ==
PROVIDERS: PCP Family Medicine; Visit Provider Physician Assistant
DX: M25.532 Pain in left wrist (principal)

== ENCOUNTER 2024-12-31 18:23 | Emergency (ER) | payer MEDICARE, SELFPAY ==
--- OUTSIDE RECORDS SUMMARY | 2020-11-27 05:50 | XMS_ITS | Continuity of Care Document ---
Author Organization [facility] Address [address] [place] [address] Phone Care Team Providers Care Carbider Name Role Phone Sacha Beaver MD Unavailable [...] Diagnoses Date Provider Providers Copied on Encounter [facility] [place], [address] [place], [place], [id number], [place] tel:[phone] [facility] right hand Complaint (chief complaint) Closed nondisplaced fracture of proximal phalanx of right little finger with routine healing, subsequent encounter 1 S[address] Goncalves. [address] [place] [address], [id number] , [place]. tel:[phone] Referring Provider: Jose Roberto Newton, [address] [place] [address], [address]. tel:[phone] [facility] [place], [address] [place] [address], [id number], tel:[phone] [facility] right hand Complaint (chief complaint) Closed nondisplaced fracture of proximal phalanx of right little finger with routine healing, subsequent encounter Sep-2 [address] Goncalves. [address] [place] [address], [id number] , [place]. tel:[phone] Referring Provider: Jose Roberto Newton, [facility] [place] [address], [address]. tel:[phone] [facility] [place], [address] [place] [address], [id number], tel:[phone] [place] [address] Closed nondisplaced fracture of proximal phalanx of right little finger, initial encounter Sep-1 [address] Goncalves. [address] [place] [address], [id number] , [place]. tel:[phone] Referring Provider: Sacha Beaver, [address] [place] [address], [id number] . tel:[phone] Intermediate New Patient Visit [facility] [place], [address] [place] [address], [id number], tel:[phone] [place] [address] right hand Complaint (chief complaint) Body mass index (BMI) 19 or less, adultClosed nondisplaced fracture of proximal phalanx of right little finger, initial encounter Sep-1 [address] Goncalves. [address] [place] [address], [id number] , [place]. tel:[phone] Referring Provider: Jose Roberto Newton [facility] [place] [address], [address]. tel:[phone] Family History Family Member Type Diagnosis Age At Onset Father Problem congenital heart disease (Ca use Of ) Mother Problem alzheimer's disease (Cause O f ) Payers Payer name Insurance type Covered constitution party ID Mone ob[place](s) [facility] For Life O CI [id number] Social History Type Description Quantity Date Captured [...] bull and fell off. Patient went to [email or web address] where she had x-rays and was placed [...]
--- OUTSIDE RECORDS SUMMARY | 2020-11-27 05:50 | XMS_ITS | Continuity of Care Document ---
Author Organization [facility] Address [address] [place] [address] Phone Care Team Providers Care Train Driver Name Role Phone Sacha Beaver MD Unavailable [...] Diagnoses Date Provider Providers Copied on Encounter [facility] [place], [address] [place], [place], [id number], [place] tel:[phone] [facility] right hand Complaint (chief complaint) Closed nondisplaced fracture of proximal phalanx of right little finger with routine healing, subsequent encounter [address] Goncalves. [address] [place] [address], [id number] , [place]. tel:[phone] Referring Provider: Jose Roberto Newton, [address] [place] [address], [address]. tel:[phone] [facility] [place], [address] [place] [address], [id number], tel:[phone] [facility] right hand Complaint (chief complaint) Closed nondisplaced fracture of proximal phalanx of right little finger with routine healing, subsequent encounter Sep-2 [address] Goncalves. [address] [place] [address], [id number] , [place]. tel:[phone] Referring Provider: Jose Roberto Newton, [facility] [place] [address], [address]. tel:[phone] [facility] [place], [address] [place] [address], [id number], tel:[phone] [phone] [place] [address] Closed nondisplaced fracture of proximal phalanx of right little finger, initial encounter Sep-1 [address] Goncalves. [address] [place] [address], [id number] , [place]. tel:[phone] Referring Provider: Sacha Beaver, [address] [place] [address], [id number] . tel:[phone] Intermediate New Patient Visit [facility], [address] [place] [address], [id number], tel:[phone] [place] [address] right hand Complaint (chief complaint) Body mass index (BMI) 19 or less, adultClosed nondisplaced fracture of proximal phalanx of right little finger, initial encounter Sep-1 [address] Goncalves. [address] [place] [address], [id number] , [place]. tel:[phone] Referring Provider: Jose Roberto Newton [facility] [place] [address], [address]. tel:[phone] Family History Family Member Type Diagnosis Age At Onset Father Problem congenital heart disease (Ca use Of ) Mother Problem alzheimer's disease (Cause O f ) Payers Payer name Insurance type Covered republican ID Mone obregon(s) [facility] For Life O CI [id number] Social History Type Description Quantity Date Captured [...] Of Treatment Date Type Action Status Goal Tobacco cessation counseling completed Goal Prescribed Diet Education co mpleted Referral Ordered: X-RAY Finger 2 Or More [...] bull and fell off. Patient went to [facility] where she had x-rays and was placed [...] Information Instructions Date Instruction Additional Infor mation Not Applicable Related to Body mass index [BMI] 19.9 or less, adult Prescribed Diet Education Relate d to Body [...]
--- OUTSIDE RECORDS SUMMARY | 2020-11-27 05:50 | XMS_ITS | Continuity of Care Document ---
Author Organization [facility] Address [address] [place] [address] Phone Care Team Providers Care Development Director Name Role Phone Sacha Beaver MD Unavailable [...] Diagnoses Date Provider Providers Copied on Encounter [facility], [address] [place], [place], [id number], [place] tel:[phone] [facility] right hand Complaint (chief complaint) Closed nondisplaced fracture of proximal phalanx of right little finger with routine healing, subsequent encounter [address] S[address] Goncalves. [address] [place] [address], [id number] , [place]. tel:[phone] Referring Provider: Jose Roberto Newton, [address] [place] [address], [address]. tel:[phone] [facility] [place], [address] [place] [address], [id number], tel:[phone] [facility] right hand Complaint (chief complaint) Closed nondisplaced fracture of proximal phalanx of right little finger with routine healing, subsequent encounter Sep-2 [address] Goncalves. [address] [place] [address], [id number] , [place]. tel:[phone] Referring Provider: Jose Roberto Newton, [facility] [place] [address], [address]. tel:[phone] [facility] [place], [address] [place] [address], [id number], tel:[phone] [place] [address] Closed nondisplaced fracture of proximal phalanx of right little finger, initial encounter Sep-1 [address] Goncalves. [address] [place] [address], [id number] , [place]. tel:[phone] Referring Provider: Sacha Beaver, [address] [place] [address], [id number] . tel:[phone] Intermediate New Patient Visit [facility], [address] [place] [address], [id number], tel:[phone] [place] [address] right hand Complaint (chief complaint) Body mass index (BMI) 19 or less, adultClosed nondisplaced fracture of proximal phalanx of right little finger, initial encounter Sep-1 [address] Goncalves. [address] [place] [address], [id number] , [place]. tel:[phone] Referring Provider: Jose Roberto Newton [facility] [place] [address], [address]. tel:[phone] Family History Family Member Type Diagnosis Age At Onset Father Problem congenital heart disease (Ca use Of ) Mother Problem alzheimer's disease (Cause O f ) Payers Payer name Insurance type Covered republican ID Mone obregon(s) [facility] For Life O CI [id number] Social History Type Description Quantity Date Captured [...] bull and fell off. Patient went to [facility] where she had x-rays and was placed [...]
--- OUTSIDE RECORDS SUMMARY | 2020-11-27 05:50 | XMS_ITS | Continuity of Care Document ---
Author Organization [facility] Address [address] [place] [address] Phone Care Team Providers Care Director Occupational Name Role Phone Sacha Beaver MD Unavailable [...] Diagnoses Date Provider Providers Copied on Encounter [facility], [address] [place], [place], [id number], [place] tel:[phone] [facility] right hand Complaint (chief complaint) Closed nondisplaced fracture of proximal phalanx of right little finger with routine healing, subsequent encounter 1 S[address] Goncalves. [address] [place] [address], [id number] , [place]. tel:[phone] Referring Provider: Jose Roberto Newton, [address] [place] [address], [address]. tel:[phone] [facility], [address] [place] [address], [id number], tel:[phone] [facility] right hand Complaint (chief complaint) Closed nondisplaced fracture of proximal phalanx of right little finger with routine healing, subsequent encounter Sep-2 [address] Goncalves. [address] [place] [address], [id number] , [place]. tel:[phone] Referring Provider: Jose Roberto Newton, [facility] [place] [address], [address]. tel:[phone] [facility], [address] [place] [address], [id number], tel:[phone] [address] [place] [address] Closed nondisplaced fracture of proximal phalanx of right little finger, initial encounter Sep-1 [address] Goncalves. [address] [place] [address], [id number] , [place]. tel:[phone] Referring Provider: Sacha Beaver, [address] [place] [address], [address] . tel:[phone] Intermediate New Patient Visit [facility], [address] [place] [address], [id number], tel:[phone] [place] [address] right hand Complaint (chief complaint) Body mass index (BMI) 19 or less, adultClosed nondisplaced fracture of proximal phalanx of right little finger, initial encounter Sep-1 [address] Goncalves. [address] [place] [address], [id number] , [place]. tel:[phone] Referring Provider: Jose Roberto Newton [facility] [place] [address], [address]. tel:[phone] Family History Family Member Type Diagnosis Age At Onset Father Problem congenital heart disease (Ca use Of ) Mother Problem alzheimer's disease (Cause O f ) Payers Payer name Insurance type Covered libertarian ID Mone obregon(s) [facility] For Life O CI [id number] Social History Type Description Quantity Date Captured [...] bull and fell off. Patient went to [facility] where she had x-rays and was placed [...]
--- OUTSIDE RECORDS SUMMARY | 2020-11-27 05:50 | XMS_ITS | Continuity of Care Document ---
Author Organization [facility] Address [address] [place] [address] Phone Care Team Providers Care Rv Servicer Name Role Phone Sacha Beaver MD Unavailable [...] Diagnoses Date Provider Providers Copied on Encounter [facility] [place], [address] [place], [place], [id number], [place] tel:[phone] [facility] right hand Complaint (chief complaint) Closed nondisplaced fracture of proximal phalanx of right little finger with routine healing, subsequent encounter [address] Goncalves. [address] [place] [address], [id number] , [place]. tel:[phone] Referring Provider: Jose Roberto Newton, [address] [place] [address], [address]. tel:[phone] [facility] [place], [address] [place] [address], [id number], tel:[phone] [facility] right hand Complaint (chief complaint) Closed nondisplaced fracture of proximal phalanx of right little finger with routine healing, subsequent encounter Sep-2 [address] Goncalves. [address] [place] [address], [id number] , [place]. tel:[phone] Referring Provider: Jose Roberto Newton, [facility] [place] [address], [address]. tel:[phone] [facility] [place], [address] [place] [address], [id number], tel:[phone] [address] [place] [address] Closed nondisplaced fracture of proximal phalanx of right little finger, initial encounter Sep-1 [address] Goncalves. [address] [place] [address], [id number] , [place]. tel:[phone] Referring Provider: Sacha Beaver, [address] [place] [address], [address] . tel:[phone] Intermediate New Patient Visit [facility] [place], [address] [place] [address], [id number], tel:[phone] [place] [address] right hand Complaint (chief complaint) Body mass index (BMI) 19 or less, adultClosed nondisplaced fracture of proximal phalanx of right little finger, initial encounter Sep-1 [address] Goncalves. [address] [place] [address], [id number] , [place]. tel:[phone] Referring Provider: Jose Roberto Newton [facility] [place] [address], [address]. tel:[phone] Family History Family Member Type Diagnosis Age At Onset Father Problem congenital heart disease (Ca use Of ) Mother Problem alzheimer's disease (Cause O f ) Payers Payer name Insurance type Covered republican ID Mone ob[place](s) [facility] For Life O CI [id number] Social History Type Description Quantity Date Captured [...] bull and fell off. Patient went to [facility] where she had x-rays and was placed [...]
[2024-12-31] VITALS (7 sets, daily range): BP systolic 99–107; BP diastolic 60–62; PULSE 65–76; RESP 16–18; TEMP 36.4–36.8; O2SAT 93–98; BMI 14.5
--- NOTE | 2024-12-31 18:38 | HMH.EDGENADL ---
Discharge Plan Disposition Patient Disposition: Home, Self-Care Condition: Good Prescriptions Prescriptions: No Action lorazepam 1 mg tablet 4 mg PO DAILY PRN (Reason: Anxiety) Patient Comments: TAKE 1 TABLET BY MOUTH THREE TIMES A DAY NEEDED DO NOT FILL UNTIL 01/20/2023 Trintellix 20 mg tablet 20 mg PO DAILY Patient Comments: TAKE 1 TABLET BY MOUTH EVERY DAY eszopiclone [Lunesta] 3 mg tablet 3 mg PO DAILY Patient Comments: TAKE 1 TABLET BY MOUTH EVERYDAY AT BEDTIME simethicone 125 mg tablet,chewable 125 mg PO QID PRN (Reason: abdominal distention) Qty: 120 5RF hydroxyzine HCl 50 mg tablet 100 mg PO HS Qty: 180 3RF ropinirole 3 mg tablet 3 mg PO DAILY Qty: 90 3RF atorvastatin 80 mg tablet 80 mg PO DAILY Qty: 90 3RF gabapentin 100 mg capsule 100 mg PO DAILY Qty: 30 5RF trazodone 150 mg tablet 150 mg PO HS Referrals Follow up/Referrals: Arturo Tobar MD [Staff Physician, General Surgery] - See instructions You Orellana MD [Primary Care Provider, Family Practice] - See instructions Activity Restrictions/Add. Instructions Additional Instructions/Restrictions: You will need to call general surgery to schedule an appointment for your rectal prolapse. You can apply gentle pressure at home if this does return but do not push hard. Return to the emergency department if you have any other acute or worsening symptoms. Clinical Impressions Clinical Impression: Complete rectal prolapse Print Language Print Language: Faroese Discharge ED Provider: Irina Kulkarni Adult HPI General Chief complaint: PAIN Stated complaint: Possible Rectal prolapse Time Seen by Provider: 12/31/24 18:36 Mode of Arrival: Ambulatory Source of Information: Patient Description of Symptoms (Recalled from ER Triage Doc. by RN): Pt presents with c/o rectal prolapse. Pt was walking to her care around 1500 when she felt pressure in her rectum. Pt has a history of prolapse, her last being around a month ago. Pt stated she tried pushing it back in and it did not work. History of Present Illness HPI narrative: Patient is a 64-year-old female with a past medical history of a rectal prolapse in the past who presented to the emergency department with rectal pain. Patient states that it started around 3 PM. Patient states that she is having pressure in her rectum. Patient states that she tried doing this at home without any relief. Patient states that she has chronic diarrhea but has not been straining. Patient has not had any blood in her stools. Patient has not any abdominal pain or other associated symptoms. Related Data Home Medications ?Medication ?Instructions ?Recorded ?Confirmed eszopiclone 3 mg tablet (Lunesta) 3 mg PO DAILY 03/24/23 12/20/24 vortioxetine 20 mg tablet 20 mg PO DAILY 03/24/23 12/20/24 (Trintellix) lorazepam 1 mg tablet 4 mg PO DAILY PRN Anxiety 05/30/24 12/20/24 trazodone 150 mg tablet 150 mg PO HS 06/09/24 12/20/24 Previous Rx's ?Medication ?Instructions ?Recorded hydroxyzine HCl 50 mg tablet 100 mg (2 x 50 mg) PO HS #180 tabs 05/14/23 ropinirole 3 mg tablet 3 mg PO DAILY #90 tabs 04/20/24 atorvastatin 80 mg tablet 80 mg PO DAILY #90 tabs 06/21/24 gabapentin 100 mg capsule 100 mg PO DAILY #30 caps 08/30/24 simethicone 125 mg chewable tablet 125 mg PO QID PRN abdominal 11/13/24 distention #120 tabs Allergies Allergy/AdvReac Type Severity Reaction Status Date / Time No Known Allergies Allergy Verified 12/20/24 09:31 [facility] Disclaimer: The information contained in this section may have been updated after the patient was seen, as this information can be updated by other users. Medical History Family history of early CAD Family history of stroke Family history of CA (myocardial infarction) Left wrist fracture PID (pelvic inflammatory disease) Alcoholism Hypertension IBS (irritable bowel syndrome) Depression Anxiety Surgical History H/O unilateral salpingectomy S/P removal of left ovary History of surgery on right wrist Hx of section Family History Other Alzheimers disease Coronary artery disease Heart attack Stroke Social History Smoking Status: Current every day smoker tobacco type: cigarettes packs per day: 1 alcohol intake: never substance use type: denies use current occupational status: disabled Travel in the last 8 weeks?: None caffeine: Yes Have you lived/traveled outside US in past 30 days?: No Contact w/someone who lives/traveled outside US past 30 days?: No Exposure to someone with infectious disease in past 14 days?: No Do you have a fever (greater than 100.4 F or 38 C)?: No Have you tested positive for COVID-19?: No Exposed to someone with COVID-19 in past 14 days?: No Do you have a sore throat?: No Do you have a cough?: No Do you have any weakness?: No Do you have any diarrhea?: No Are you experiencing any unusual bleeding?: No Do you have any muscle aches/pain?: No Do you have any abdominal pain?: No Are you experiencing loss of taste or smell?: No Other Medical History Have you received the Pneumonia Vaccine: No ROS Obtained: Yes All systems reviewed & no additional complaints except as documented and Yes Systems reviewed as appropriate & no additional complaints except as documented Physical Exam General General appearance: alert and in no apparent distress Head Head exam: atraumatic, normocephalic and normal inspection Eye Eye exam: Present normal appearance, PERRL and EOMI; Absent scleral icterus ENT ENT exam: Present normal exam and normal external ear exam Neck Neck exam: Present normal inspection and full ROM Chest Chest inspection: Present normal inspection and symmetric chest wall rise Respiratory Respiratory exam: Present normal lung sounds bilaterally; Absent respiratory distress or wheezes Cardiovascular Cardiovascular exam: Present regular rate, normal rhythm and normal heart sounds Abdominal Exam Abdominal exam: Present soft and distention; Absent tenderness, guarding or rebound Rectal Exam Rectal exam: Present other (rectal prolapse present) Extremities Exam Extremities exam: Present normal inspection and full ROM Back Exam Back exam: Present normal inspection and full ROM Neurological Exam Neurological exam: Present alert and oriented X3 Psychiatric Psychiatric exam: Present normal affect and normal mood Skin Skin exam: Present warm and dry Medical Decision Making Medical Records Medical records reviewed: Yes I reviewed the patient's medical records. Screening: Per USPSTF and CDC recommendations, given the prevalence of disease in our region, it is our hospital?s policy to screen for HIV and viral Hepatitis for all patients aged 18 and over and those with ongoing risk factors. Gary Inquiry Pt receiving controlled substance: No Vital Signs: 12/31/24 18:24 12/31/24 19:00 12/31/24 19:00 Temperature 97.5 F L Temperature Source Oral Pulse Rate 65 Pulse Rate [Right] 76 Respiratory Rate 16 Blood Pressure 99/62 L Blood Pressure [Right Arm] 103/62 L Blood Pressure Mean 68 Blood Pressure Mean [Right Arm] 75 Blood Pressure Source [Right Arm] Automatic Cuff Blood Pressure Position [Right Arm] Sitting 02 Sat by Pulse Oximetry 95 93 L Oxygen Delivery Method Room Air Room Air 12/31/24 19:15 Temperature Temperature Source Pulse Rate 65 Pulse Rate [Right] Respiratory Rate Blood Pressure Blood Pressure [Right Arm] Blood Pressure Mean Blood Pressure Mean [Right Arm] Blood Pressure Source [Right Arm] Blood Pressure Position [Right Arm] 02 Sat by Pulse Oximetry 93 L Oxygen Delivery Method Room Air Lab Data Lab results reviewed: Yes I reviewed the patient's lab results. Orders (Tests/Meds): ED MEDICATIONS Discontinued Medications Generic Name Dose Route Start Last Admin Trade Name Freq PRN Reason Stop Dose Admin Fentanyl Citrate 25 mcg 12/31/24 18:39 Fentanyl 100mcg/2ml Vial IV 01/30/25 18:38 [id number] PRN Achieve CPOT Score < 3 Fentanyl Citrate 25 mcg 12/31/24 18:59 12/31/24 19:22 Fentanyl 100mcg/2ml Vial IV 12/31/24 19:00 25 mcg ONCE ONE Administration Medical Decision Narrative: Patient is a 64-year-old female with a past medical history of 1 rectal lapse in the past who presented to the emergency department with rectal pain and pressure. On arrival, patient was hemodynamically stable with unremarkable vital signs. Differential includes but not limited to: Rectal prolapse, intra-abdominal process, hemorrhoids, abscess, amongst others. On exam, patient had a rectal prolapse. Has not had any abdominal plain, bloody stools patient's exam was otherwise unremarkable therefore did not feel that labs or imaging was felt to be indicated. Was given IV fentanyl and patient's rectal prolapse was able to be reduced at bedside. Patient was observed in the emergency department for 30 minutes after and patient had no return of her prolapse. Patient was sent with general surgery follow-up and patient was discharged home in stable condition return precautions were discussed. Critical Care Critical Care Time Critical Care Time: No
--- OUTSIDE RECORDS SUMMARY | 2024-12-31 18:50 | XMS_ITS | Clinical Summary ---
Author Organization [facility] Address [address] [place] [address] Phone Care Team Providers Care Blasting Contract Miner Name Role Phone Unavailable Primary Care Provider [...]
[2024-12-31] MEDS: FENTANYL 100MCG/2ML VIAL 25 MCG IV (19:22)
== END 2024-12-31 20:24 | disposition home or self-care (01) ==
PROVIDERS: Emergency Provider Student in an Organized Health Care Education/Training Program; PCP Family Medicine
DX: K62.3 Rectal prolapse (principal); E78.5 Hyperlipidemia, unspecified; E86.0 Dehydration
CPT/HCPCS: 96374; 96376; 99284; J3010